=== PATIENT | female | born 1945 | race Caucasian/White ===

== ENCOUNTER 2016-08-25 07:36 | Day surgery (SDC) | payer MEDICARE ==
[~2016-08-25 07:36] MED LIST: Buffered Lidocaine 1% SYRIN* 3 ML/SYR SYRINGE INTRADERM ONE
[2016-08-25] MEDS ORDERED: Midazolam* 1 MG/ML 2 ML VIAL (2 MG) ONE ×2 (10:12→10:15)
[2016-08-25 10:55] VITALS: BP 128/82
[2016-08-25] MEDS ORDERED: Lidocaine 2% EPI 1:200000 MPF* 20 ML VIAL ONE (12:50)
[2016-08-25] MEDS ORDERED: Proparacaine 0.5% OPHTH.SOL* 15 ML BTL ONE (12:50)
[2016-08-25] MEDS ORDERED: Povidone Iodine 5% OPTH* 30 ML BTL ONE (12:50)
[2016-08-25] MEDS ORDERED: acetaZOLAMIDE TAB* 250 MG ONE (12:50)
[2016-08-25] MEDS ORDERED: Neomycin/Polymy/Dex OPTH.SUSP* MAXITROL 0.1% 5 ML ONE (12:50)
[2016-08-25] MEDS ORDERED: Lidocaine 1% MPF* 2 ML VIAL ONE (12:50)
[2016-08-25] MEDS ORDERED: Cyclopentolate 1% OPTH.SOL* 2 ML BTL ONE (12:50)
[2016-08-25] MEDS ORDERED: Flurbiprofen 0.03% OPTH.SOL* 2.5 ML BTL ONE (12:50)
[2016-08-25] MEDS ORDERED: Phenylephrine 2.5% OPTH.SOL* 2 ML BTL ONE (12:50)
--- NOTE | 2016-08-25 13:57 | OP ---
DATE OF OPERATION: 08/25/16 [facility] DATE OF : 47 SURGEON: Fernie Lauren M.D. PREOPERATIVE DIAGNOSIS: Cataract, left eye. POSTOPERATIVE DIAGNOSIS: Cataract, left eye. OPERATIVE PROCEDURE: Phacoemulsification left eye with IOL. DESCRIPTION OF PROCEDURE: The patient was brought to the operating room after being given 1/2% Alcaine with epinephrine drops in the preoperative area. The eye was prepped and draped in the usual sterile fashion. Sterile drape and eyelid speculum were placed. Again, topical 1/2% Alcaine with epinephrine was given. A paracentesis incision was made at the 3 o'clock position with the No.75 blade. Clear cornea incision 2.2 x 2.2-mm was created at the 6 o'clock position starting at the anterior limbus using the 2.2-mm keratome. The anterior chamber was irrigated with 0.4 mL of 1% non-preservative intracameral lidocaine and filled with DisCoVisc. A capsulorrhexis was completed using the cystotome and the Utrata forceps. Hydrodissection was performed with balanced salt solution. The lens nucleus was removed with the Phacoemulsification handpiece without incident. Cortex was removed with the irrigation-aspiration handpiece. The capsular bag was re-inflated using DisCoVisc and an [id number] 20.5- diopter implant was inserted with the shooter. The irrigation-aspiration handpiece was used to remove all residual DisCoVisc. The eye was refilled with balanced salt solution and the wound checked and found to be watertight. Topical Maxitrol drops were given. [id number]/[facility] #: [id number] [facility]
== END 2016-08-25 10:43 | disposition home or self-care (01) ==
LOC: OREAST 07:36
PROVIDERS: ATTEND Specialist
DX: H25.12 Age-related nuclear cataract, left eye (principal); H43.813 Vitreous degeneration, bilateral; H43.21 Crystalline deposits in vitreous body, right eye; I10 Essential (primary) hypertension
CPT/HCPCS: A9270-GY; J2250; V2632

== ENCOUNTER 2016-10-16 13:12 | Observation (INO) | payer MEDICARE ==
[2016-10-16] MEDS ORDERED: Aspirin Low Dose CHEW TAB* 81 MG PO ONE (13:29)
[2016-10-16] MEDS ORDERED: Nitroglycerin TAB 0.4 MG* 0.4 MG TAB SL ONE (13:47)
[2016-10-16 13:56] LABS: Hematocrit 34 % (35-47); Hemoglobin 10.8 g/dl (12.0-16.0); Mean Corpuscular HGB Conc 32 g/dl (31-36); Mean Corpuscular Hemoglobin 28 pg (27-31); Mean Corpuscular Volume 87 fL (80-97); Mean Platelet Volume 7 um3 (7.4-10.4); Red Blood Count 3.86 10^6/ul (4.0-5.4); Red Cell Distribution Width 14 % (10.5-15); White Blood Count 9.5 10^3/ul (3.5-10.8)
--- NOTE | 2016-10-16 13:59 | RAD ---
INDICATION: Chest pain. COMPARISON: Comparison is made with a prior chest x-ray study from October 16, 2015. TECHNIQUE: A portable view of the chest was obtained. FINDINGS: Cardiac and mediastinal contours appear to be within normal limits. The lungs are underinflated and clear. No pleural effusion is seen. IMPRESSION: NO EVIDENCE FOR ACUTE DISEASE.
[2016-10-16 14:07] LABS: Albumin 3.9 g/dL (3.2-5.2); BUN/Creatinine Ratio 21.3 (8-20); Calcium 8.9 mg/dL (8.6-10.3); EGFR African American 75.7 (>60); EGFR Non-African American 58.9 (>60); Potassium 4.5 mmol/L (3.5-5.0); Total Protein 6.5 g/dL (6.4-8.9)
[2016-10-16 14:08] LABS: Globulin 2.6 g/dL (2-4); Total Bilirubin 0.3 mg/dL (0.2-1.0)
--- NOTE | 2016-10-16 14:24 | RAD ---
INDICATION: Chest pain evaluate for aneurysm. COMPARISON: Comparison is made with prior CTs of the chest from March 07, 2015 and March 24, 2016. TECHNIQUE: A CT scan of the chest was performed without intravenous contrast. Contiguous axial sections were obtained from the lung apices through the lung bases. Images were reconstructed in the coronal and sagittal planes. FINDINGS: There is a linear density in the right middle lobe which is unchanged from the prior exam most consistent with atelectasis or scarring. There is a soft tissue density nodule present on image #27 of 56 in the right middle lobe measuring 6 mm in size which is unchanged from the prior studies. There is a soft tissue density nodule present in the superior segment of the left lower lobe on image #24 of 56 which is unchanged. There is a 3 mm nodule present in the left upper lobe on image # 28 of 56 which is unchanged. There is also a calcified granuloma in the right middle lobe and calcified lymph nodes in the subcarinal region and right hilum as well as calcifications within the spleen most consistent with old granulomatous disease. No pleural effusion is present. No significant enlarged mediastinal or hilar lymph nodes are seen. The heart is within normal limits in size. No pericardial effusion is present. There are coronary artery calcifications present. The thoracic aorta is normal in caliber. There is moderate calcific plaque present. There is a small hiatal hernia present which is unchanged. The patient appears to be status post gastric bypass surgery and cholecystectomy. No significant focal osseous abnormality is seen. IMPRESSION: 1. THE THORACIC AORTA IS NORMAL IN CALIBER. 2. FINDINGS CONSISTENT WITH OLD GRANULOMATOUS DISEASE. IN ADDITION THERE ARE SEVERAL NONCALCIFIED NODULES WHICH ARE UNCHANGED. RECOMMEND CONTINUED FOLLOW-UP WITH A REPEAT NONCONTRAST CT OF THE CHEST IN 6 MONTHS TIME. 3. SMALL HIATAL HERNIA.
[2016-10-16] MEDS ORDERED: Nitroglycerin 0.2 MG/HR PATCH* (5 MG) TRANSDERM ONE (14:48)
--- NOTE | 2016-10-16 15:18 | RAD ---
INDICATION: Chest and back pain evaluate for aortic aneurysm history of contrast allergy. COMPARISON: Comparison is made with a prior CT of the abdomen and pelvis from October 16, 2015. TECHNIQUE: A CT scan of the abdomen was performed without intravenous or oral contrast. Contiguous axial sections were obtained from the lung bases through the tops of the iliac crests. Images were reconstructed in the coronal and sagittal planes. FINDINGS: The lung bases are clear. No pleural effusion is present. These liver and spleen appear within normal limits in size. No significant focal hepatic abnormality is seen on this noncontrast study. There are calcifications within the spleen most consistent with old granulomatous disease as previously noted. The patient is status post cholecystectomy. The pancreas appears to be within normal limits. The kidneys and adrenal glands are normal in size. No hydronephrosis is seen. The aorta is normal in caliber. There is moderate calcific plaque present. No significant enlarged retroperitoneal lymph nodes are seen. The patient is status post gastric bypass surgery. There is a small hiatal hernia present which is unchanged. The visualized portion of the small and large bowel appear nondistended. There is a mesh graft in the anterior abdominal wall which is partially visualized on this study. No free intraperitoneal air or fluid is seen. No significant focal osseous abnormality is seen. IMPRESSION: 1. NO EVIDENCE FOR ACUTE FINDING. 2. MODERATE ATHEROSCLEROTIC CHANGE, NO AORTIC ANEURYSM. 3. STATUS POST CHOLECYSTECTOMY AND GASTRIC BYPASS SURGERY.
--- NOTE | 2016-10-16 19:10 | HP ---
CC: Roxana Hernandez MD * HISTORY AND PHYSICAL: DATE OF ADMISSION: 10/16/16 PRIMARY CARE PROVIDER: Roxana Hernandez MD. ATTENDING PHYSICIAN: Sung Hoover MD *(dictated by Iva Guzman NP). CHIEF COMPLAINT: Back pain between shoulder blades that radiates to chest. HISTORY OF PRESENT ILLNESS: Ms. Sy is a 71-year-old female with a past medical history significant for angina, hyperlipidemia, hypertension and GERD who presents to the emergency room with complaints of pain between her shoulder blades that radiates around to her chest. The patient reports that this discomfort started last night. She took some Motrin and used a heating pad and went to sleep and felt that the discomfort had went away on its own. The patient again developed discomfort after eating lunch that again started between her shoulder blades and radiated around to her chest. She reports that her back felt like tightness in her chest, felt like pressure. She did not notice any aggravating factors. She felt that rest helped with the discomfort some. She also noted that the pain was better when she lied on her side and worst when she was lying on her back. The patient feels that this discomfort is different than her typical anginal pain. The patient denies any fever, chills, nausea, vomiting, diarrhea, diaphoresis, or urinary symptoms. The patient states that she noticed shortness of breath with exertion. This has occurred for some time now and is not new. She also reports having a cough that is productive with a white phlegm. Due to the concern, the patient presented to the emergency room for further evaluation of her symptoms. While in the emergency room, the patient received aspirin and nitro SL x2. She is currently pain free. She had an EKG showing sinus rhythm with a right bundle branch block. This EKG is similar to previous EKG from 10/16/15 with the exception that in the previous EKG, she had ST depression in leads V3 to 6 and aVF. The patient had troponins x2 that were 0.00. The patient also had a D -dimer that was less than 200. The patient had a chest x-ray showing no active disease in addition to chest and abdomen CT showing no acute findings and no aneurysms noted. Hospitalists were asked to evaluate the patient for admission. PAST MEDICAL HISTORY: 1. Hypertension. 2. Hyperlipidemia. 3. GERD. 4. Angina. 5. Arthritis. PAST SURGICAL HISTORY: 1. Status post cholecystectomy. 2. Status post total hysterectomy and bilateral salpingo-oophorectomy. 3. Status post a cyst excision from her shoulder. 4. Status post gastric bypass surgery in 2002. 5. Status post 3 hernia repairs. 6. Status post hammer toe repair. HOME MEDICATIONS: Include: 1. Lisinopril 40 mg oral daily. 2. Diltiazem 120 mg oral daily. 3. Atorvastatin 20 mg oral daily. 4. Aspirin 81 mg oral daily. 5. Super complex vitamin B 1 oral daily. 6. Propranolol 60 mg oral daily. 7. Omeprazole 20 mg oral daily. 8. Magnesium 250 mg oral daily. ALLERGIES: IODINE CONTRAST. FAMILY HISTORY: The patient's father passed from an AR at age 52. The patient' s maternal grandmother had a history of pacemaker. The patient's maternal uncle had a history of diabetes mellitus. The patient's mother had a history of uterine cancer. SOCIAL HISTORY: The patient is a former smoker quitting approximately 30 years ago. Prior to that, she had a pack a day smoking history for 20 years. The patient occasionally drinks wine. She denies recreational drug use. She is currently not working as she is taking care of her . Her sons, "Becky" Jose and Flaquito Sy, would be her surrogate decision makers in the event that she is unable to make decisions for herself. REVIEW OF SYSTEMS: I performed a 14-point review of systems. All the pertinent positives and negatives are mentioned in the history of present illness. The remaining review of systems are negative. PHYSICAL EXAMINATION GENERAL APPEARANCE: The patient is alert, pleasant, appears to be in no acute distress. VITAL SIGNS: Temperature 97.0, heart rate 50, respiratory rate 18, O2 sat 98% on room air, blood pressure 164/57. HEENT: Normocephalic, atraumatic. Pupils are equal and reactive to light. Extraocular movements are intact. RESPIRATORY: There is no accessory muscle use and the lungs are clear to auscultation bilaterally. CARDIOVASCULAR: Regular rate and rhythm. S1, S2 present. There are no murmurs , rubs, or gallops heard. ABDOMEN: Soft, nontender, nondistended. There are bowel sounds present x4. EXTREMITIES: There is no lower extremity edema. DP and PT pulses are 2+ and symmetric. MUSCULOSKELETAL: There is no clubbing or cyanosis noted. The patient exhibits good strength in all extremities. NEUROLOGICAL: The patient is alert and oriented x4. Cranial nerves II through XII are grossly intact. PSYCHOLOGICAL: The patient is calm and cooperative. SKIN: There are no rashes or abnormalities seen. DIAGNOSTIC STUDIES/LABORATORY DATA: Sodium 139, potassium 4.5, chloride 109, CO2 24, BUN 20, creatinine 0.94, glucose 76. White blood cell count 9.5, hemoglobin 10.8, hematocrit 34, and platelet count 192,000. Troponin 0.00 x2. D-dimer less than 200. EKG showed a sinus rhythm and a right bundle branch block. Rate 61. There are no signs of acute ischemia. When compared to previous EKG from 10/16/15, the previous EKG had ST depression in leads V3 to 6 and aVF which has now resolved. 1. Chest x-ray from today. Radiologist's impression: No active disease. 2. Chest CT from today. Radiologist's impression: The thoracic aorta is normal in caliber. Findings consistent with old granulation tissue. In addition, there are several noncalcified nodules which are unchanged. Recommend continued followup with a repeat noncontrast CT of the chest in 6 months' time. Small hiatal hernia. 3. Abdomen CT from today. Radiologist's impression: No evidence for acute findings. Moderate atherosclerotic change. No aortic aneurysm. Status post cholecystectomy and gastric bypass surgery. IMPRESSION: Ms. Sy is a 71-year-old female with past medical history significant for angina, hyperlipidemia, gastroesophageal reflux disease, and hypertension who presents to the emergency room with complaints of chest discomfort and back discomfort for a day. She will be admitted as an observation for chest pain, rule out acute coronary syndrome. ASSESSMENT/PLAN: 1. Chest pain: The patient's D-dimer is less than 200. She is not hypoxic and not tachycardic. I have low suspicion that the patient's discomfort is caused by a pulmonary embolus. We will repeat her troponins one more time. We will monitor her on telemetry. The patient may benefit from an outpatient stress test if she does in fact rule out for acute coronary syndrome. The patient also reports that she has been under stress due to her 's health. I suspect this could be correlating to some of her symptoms. The patient denies any recent activities that could have strained her back or chest muscles. Her pain is not reproducible with palpation. We will check the patient's fasting lipids in the morning. She is already on a statin and baby aspirin in addition to propranolol. 2. Hypertension: The patient had some mild hypertension while in the emergency room. She will be continued on her lisinopril, diltiazem, and propranolol. 3. Hyperlipidemia: The patient will be continued on her home atorvastatin. We will check fasting lipids in the morning and adjust her statin as needed. 4. Gastroesophageal reflux disease: We will continue the patient on her home Prilosec. 5. Fluids, electrolytes, and nutrition: The patient will be continued on a heart healthy diet. 6. Code status: Full code. 7. DVT prophylaxis: She is at high risk and will be placed on subcu heparin. 8. Disposition: Observation for rule out acute coronary syndrome. TIME SPENT: The time for this admission was 60 minutes, greater than half of that was spent [id number] with the patient discussing medications, past medical history and the events leading up to her arrival today and performing a physical examination. The case has been reviewed with the attending, Dr. Hoover , who agrees with the plan of care. Reviewed by KATTY PALACIOS 10/16/16 [id number]/[facility] #: [id number] BRADY
[2016-10-16] MEDS: Acetaminophen TAB* 325 MG PO PRN (19:49)
[2016-10-16] MEDS ORDERED: Omeprazole CAP* 20 MG PO SCH (21:00)
[2016-10-16] MEDS: Heparin VIAL(*) 5000 UNITS/ML VIAL (FIVE THOUSAND) SUBCUT SCH (22:02)
[2016-10-17] MEDS: Acetaminophen TAB* 325 MG PO PRN ×3 (02:25→17:47)
[2016-10-17] MEDS: Heparin VIAL(*) 5000 UNITS/ML VIAL (FIVE THOUSAND) SUBCUT SCH ×3 (05:50→21:40)
[2016-10-17 05:52] LABS: HDL Cholesterol 44.7 mg/dL
[2016-10-17] MEDS: Aspirin EC Low Dose* 81 MG TAB.EC PO SCH (07:48)
[2016-10-17] MEDS: Lisinopril TAB* 10 MG PO SCH (07:48)
[2016-10-17] MEDS: Omeprazole CAP* 20 MG PO SCH (07:48)
[2016-10-17] MEDS: Diltiazem CD CAP* 120 MG PO SCH (07:48)
[2016-10-17] MEDS: Atorvastatin* 20 MG TAB PO SCH (07:48)
[2016-10-17] MEDS ORDERED: Propranolol LA CAP* 60 MG PO SCH ×2 (09:00→09:59)
--- NOTE | 2016-10-17 09:45 | PN ---
Subjective Date of Service: 10/17/16 Interval History: patient reports she is tired and reports intermittent left chest wall "twinges of pain and upper back discomfort". She denies ever having these symptoms in the past, no known trauma or heavy lifting. Denies SOB, diaphoresis, nausea. No orthopnea or LE edema, no cough. Denies reflux. Objective Active Medications: Acetaminophen (Tylenol Tab*) 650 mg PO Q4H PRN PRN Reason: FEVER/PAIN Last Admin: 10/17/16 02:25 Dose: 650 mg Aspirin (Aspirin Ec Low Dose*) 81 mg PO DAILY [facility] Last Admin: 10/17/16 07:48 Dose: 81 mg Atorvastatin Calcium (Lipitor*) 20 mg PO DAILY [facility] Last Admin: 10/17/16 07:48 Dose: 20 mg Diltiazem HCl (Cardizem Cd Cap*) 120 mg PO DAILY [facility] Last Admin: 10/17/16 07:48 Dose: 120 mg Heparin Sodium (Porcine) (Heparin Vial(*)) 5,000 units SUBCUT Q8HR [facility] Last Admin: 10/17/16 05:50 Dose: 5,000 units Lisinopril (Prinivil Tab*) 40 mg PO DAILY [facility] Last Admin: 10/17/16 07:48 Dose: 40 mg Omeprazole (Prilosec Cap*) 20 mg PO DAILY [facility] Last Admin: 10/17/16 07:48 Dose: 20 mg Propranolol HCl (Inderal La Cap*) 60 mg PO DAILY [facility] Last Admin: 10/17/16 07:48 Dose: 60 mg Vital Signs 10/16/16 10/16/16 10/16/16 16:00 17:11 19:28 Temperature 97.7 F 97.7 F Pulse Rate 51 53 51 Respiratory 18 20 20 Rate Blood Pressure 164/57 153/61 118/44 (mmHg) O2 Sat by Pulse 98 100 98 Oximetry 10/16/16 10/17/16 10/17/16 23:05 03:49 07:37 Temperature 97.6 F 98.4 F 97.1 F Pulse Rate 67 69 59 Respiratory 16 16 16 Rate Blood Pressure 147/67 142/62 134/55 (mmHg) O2 Sat by Pulse 99 97 98 Oximetry 10/17/16 07:59 Temperature 97.1 F Pulse Rate 59 Respiratory 16 Rate Blood Pressure 134/55 (mmHg) O2 Sat by Pulse 98 Oximetry Oxygen Devices in Use Now: None Appearance: 71 yo female sitting up on the side of the bed A+O x3 in NAD Eyes: No Scleral Icterus, PERRLA Ears/Nose/Mouth/Throat: NL Teeth, Lips, Gums, Mucous Membranes Moist Neck: NL Appearance and Movements; NL JVP Respiratory: Symmetrical Chest Expansion and Respiratory Effort, Clear to Auscultation Cardiovascular: NL Sounds; No Murmurs; No JVD, RRR, No Edema Abdominal: NL Sounds; No Tenderness; No Distention Extremities: No Edema, No Clubbing, Cyanosis Skin: No Rash or Ulcers, No Nodules or Sclerosis Neurological: Alert and Oriented x 3, NL Sensation, NL Gait, NL Muscle Strength and Tone Lines/Tubes/Other Access: Clean, Dry and Intact Peripheral IV Nutrition: Taking PO's Result Diagrams: 10/16/16 13:42 10/16/16 13:42 Assess/Plan/Problems-Billing Assessment: 71 yo female with a PMH of angina, GERD, HTN, HLD, HLD, Obesity who presented with yesterday with CP. - Patient Problems (1) Chest pain Comment: - continues to have intermittent chest and upper back discomfort. Troponins negative x3. No EKG changes on admission EKG, plan to repeat EKG and Trop now - Plan for nuclear exercise stress test in am, holding BB in am - Nitro PRN - TTE (2) Anemia Comment: - normocytic anemia - send iron studies and stool for occult blood (3) History of hypertension Comment: - controlled. continue BB, cardizem, lisinopril. HR noted 50-60's currently on BB - continue to monitor on Tele. (4) History of gastroesophageal reflux (GERD) Comment: - continue PPI (5) Hx of hyperlipidemia Comment: - WNL's. - continue statin (6) DVT prophylaxis Comment: HSQ (7) Full code status Status and Disposition: switch to inpatient for stress test in am.
[2016-10-17] MEDS ORDERED: Nitroglycerin TAB 0.4 MG* 0.4 MG TAB SL PRN (09:56)
[2016-10-17 10:45] LABS: Hematocrit 36 % (35-47); Hemoglobin 11.3 g/dl (12.0-16.0); Mean Corpuscular HGB Conc 32 g/dl (31-36); Mean Corpuscular Hemoglobin 29 pg (27-31); Mean Corpuscular Volume 90 fL (80-97); Mean Platelet Volume 7 um3 (7.4-10.4); Red Blood Count 3.95 10^6/ul (4.0-5.4); Red Cell Distribution Width 14 % (10.5-15); White Blood Count 6.7 10^3/ul (3.5-10.8)
[2016-10-17 10:51] LABS: Anion Gap 4 mmol/L (2-11); BUN/Creatinine Ratio 26.8 (8-20); Blood Urea Nitrogen 19 mg/dL (6-24); CO2 Carbon Dioxide 25 mmol/L (22-32); Calcium 9.2 mg/dL (8.6-10.3); Chloride 106 mmol/L (101-111); EGFR African American 104.7 (>60); EGFR Non-African American 81.4 (>60); Glucose 95 mg/dL (70-100); Potassium 4.6 mmol/L (3.5-5.0); Sodium 135 mmol/L (133-145)
[2016-10-17 11:56] LABS: Iron 66 ug/dL (50-212); Total Iron Binding Capacity 410 mcg/dL (250-450); Transferrin 293 mg/dL (203-362)
[2016-10-17 12:15] LABS: Ferritin 10.7 ng/mL (11-307)
[2016-10-17 12:19] LABS: Folate > 20.00 ng/mL (>3.99)
[2016-10-17 12:20] LABS: Vitamin B12 308 pg/mL (180-914)
[2016-10-18] MEDS: Heparin VIAL(*) 5000 UNITS/ML VIAL (FIVE THOUSAND) SUBCUT SCH ×2 (05:58→15:57)
--- NOTE | 2016-10-18 08:49 | PN ---
Subjective Date of Service: 10/18/16 Interval History: Patient seen and examined at bedside. Ms. Sy is OOB to chair. She reports sleeping pretty well, though she continues to endorses intermittent left chest wall and upper back discomfort/pain. No previously known history of this, but she states that she has felt more lethargic recently and that simple activities , such as walking through the grocery store now cause her fatigue. Currently denies SOB, nausea, orthopnea, LE pain/edema. She does report a hx of "poor circulation to the legs" and follows with a vascular surgeon. Telemetry: Sinus bradycardia 58 Family History: Unchanged from Admission Social History: Unchanged from Admission Past Medical History: Unchanged from Admission Objective Active Medications: Acetaminophen (Tylenol Tab*) 650 mg PO Q4H PRN PRN Reason: FEVER/PAIN Last Admin: 10/17/16 17:47 Dose: 650 mg Aspirin (Aspirin Ec Low Dose*) 81 mg PO DAILY [facility] Last Admin: 10/17/16 07:48 Dose: 81 mg Atorvastatin Calcium (Lipitor*) 20 mg PO DAILY [facility] Last Admin: 10/17/16 07:48 Dose: 20 mg Diltiazem HCl (Cardizem Cd Cap*) 120 mg PO DAILY [facility] Last Admin: 10/17/16 07:48 Dose: 120 mg Heparin Sodium (Porcine) (Heparin Vial(*)) 5,000 units SUBCUT Q8HR [facility] Last Admin: 10/18/16 05:58 Dose: 5,000 units Lisinopril (Prinivil Tab*) 40 mg PO DAILY [facility] Last Admin: 10/17/16 07:48 Dose: 40 mg Nitroglycerin (Nitroglycerin Tab 0.4 Mg*) 0.4 mg SL .Q5MIN PRN PRN Reason: ANGINA Omeprazole (Prilosec Cap*) 20 mg PO DAILY [facility] Last Admin: 10/17/16 07:48 Dose: 20 mg Propranolol HCl (Inderal La Cap*) 60 mg PO DAILY [facility] Vital Signs 10/17/16 10/17/16 10/17/16 11:17 12:32 15:06 Temperature 97.3 F 97.3 F 97.5 F Pulse Rate 60 60 60 Respiratory 16 16 20 Rate Blood Pressure 138/56 138/56 143/60 (mmHg) O2 Sat by Pulse 97 97 99 Oximetry 10/17/16 10/17/1617 19:07 20:00 23:28 Temperature 97.6 F 98.4 F Pulse Rate 62 71 Respiratory 20 16 16 Rate Blood Pressure 123/53 150/58 (mmHg) O2 Sat by Pulse 98 98 Oximetry 10/18/16 04:10 Temperature 98.3 F Pulse Rate 63 Respiratory 16 Rate Blood Pressure 155/55 (mmHg) O2 Sat by Pulse 98 Oximetry Oxygen Devices in Use Now: None Appearance: Older female, OOB to chair, NAD Eyes: No Scleral Icterus, PERRLA Ears/Nose/Mouth/Throat: Clear Oropharnyx, Mucous Membranes Moist Neck: NL Appearance and Movements; NL JVP Respiratory: Symmetrical Chest Expansion and Respiratory Effort, Clear to Auscultation Cardiovascular: NL Sounds; No Murmurs; No JVD, RRR Abdominal: NL Sounds; No Tenderness; No Distention Lymphatic: No Auricular Adenopathy Extremities: No Edema Skin: No Rash or Ulcers, No Nodules or Sclerosis Neurological: Alert and Oriented x 3, NL Muscle Strength and Tone Lines/Tubes/Other Access: Clean, Dry and Intact Peripheral IV Result Diagrams: 10/17/16 10:29 10/17/16 10:29 Assess/Plan/Problems-Billing Assessment: 71 yo female with a PMH of angina, GERD, HTN, HLD, HLD, Obesity who presented 10/16 with CP. - Patient Problems (1) Chest pain Code(s): R07.9 - CHEST PAIN, UNSPECIFIED Comment: Continues to have intermittent chest and upper back discomfort. Troponins negative x3 No new ischemic changes noted on EKG, patient has RBBB Nuclear stress test and TTE today (2) Anemia Code(s): D64.9 - ANEMIA, UNSPECIFIED Comment: Normocytic anemia, HH improved today Asymptomatic Ferritin only mildly low Stool occult pending Outpatient follow-up with PCP for further workup (3) History of hypertension Code(s): Z86.79 - PERSONAL HISTORY OF OTHER DISEASES OF THE CIRCULATORY SYSTEM Comment: Mildly elevated overnight Continue BB (held this AM for stress test), diltiazem, lisinopril. HR noted 50-60's currently on BB - continue to monitor on telemetry. (4) Hx of hyperlipidemia Code(s): Z86.39 - PERSONAL HISTORY OF ENDO, NUTRITIONAL AND METABOLIC DISEASE Comment: Lipid profile WNL Continue statin. (5) History of gastroesophageal reflux (GERD) Code(s): Z87.19 - PERSONAL HISTORY OF OTHER DISEASES OF THE DIGESTIVE SYSTEM Comment: Continue omeprazole. (6) DVT prophylaxis Comment: SQ heparin Status and Disposition: OBV admit. Plan for stress test and echo today.
[2016-10-18] MEDS: Acetaminophen TAB* 325 MG PO PRN (09:38)
[2016-10-18] MEDS: Aspirin EC Low Dose* 81 MG TAB.EC PO SCH (09:39)
[2016-10-18] MEDS: Atorvastatin* 20 MG TAB PO SCH (09:39)
[2016-10-18] MEDS: Omeprazole CAP* 20 MG PO SCH (09:39)
[2016-10-18] MEDS: Lisinopril TAB* 10 MG PO SCH (09:39)
--- NOTE | 2016-10-18 12:47 | RAD ---
HISTORY: Chest pain, shortness of breath, hypertension, hyperlipidemia, obesity, abnormal EKG COMPARISONS: None TECHNIQUE: A 1 day stress/rest myocardial perfusion study was performed, with exercise stress. The exercise portion was performed using the Mario protocol, for a total METs of 4.6. The stress portion was monitored by Dr. Diop. Gated SPECT imaging was performed, with CT-based attenuation correction DOSE: Stress: Technetium 99m tetrofosmin, 25.48 millicuries, injected at 11:54 AM on October 18, 2016 Rest: Technetium 99m tetrofosmin, 10.83 millicuries, injected at 6:30 AM on October 18, 2016 Pharmacologic agent: None FINDINGS: CARDIAC MONITORING: Peak heart rate of 144 bpm, 96% of predicted EF: 78 % TID: 1.15 MOTION: Normal motion, with normal wall thickening. PERFUSION: There are no fixed or reversible perfusion defects. OTHER: None IMPRESSION: NO FIXED OR REVERSIBLE PERFUSION DEFECTS. ASSESSMENT: LOW RISK. Based on imaging criteria from ACC/AHA 2002. Guideline Update for the Management of Patient's with Chronic Stable Angina, table 23. Noninvasive Risk Stratification.
[2016-10-18] MEDS: Diltiazem CD CAP* 120 MG PO SCH (13:02)
--- NOTE | 2016-10-18 15:19 | ED ---
Tu Heaton SooYoung, scribed for Oseas Arreaga MD on 10/16/16 at 1331 . HPI Chest Pain - HPI Summary HPI Summary: A 71 y/o F presents to ED with c/o intermittent CP onset last night. Pain described as pressure and radiating to back. Associated sx: SOB, NAYLOR, dizziness since resolved, productive cough. Denies pedal edema, abd pain. Pt took 1 aspirin approx two hours [employer]. No recent travel, bed rest or surgeries. Carrying grocieres mildly aggravted the sx. She states the pain worsened through the night particularly along her back and shoulders. She states feeling somewhat improved in ED, and rates her pain as 3 out of 10. She had lunch this afternoon at [employer]. Pert PMHx: HTN, HDL, vascular dz. No allergies to shell fish. Past stress test and angiogram was "a long time ago," she thinks they were nml. She saw Dr. Aguilar, director of career services, only a few times a long time ago. - History of Current Complaint Chief Complaint: EDChestPainROMI Hx Obtained From: Patient Onset/Duration: Started Hours Ago - last night, Atraumatic, Still Present Timing: Intermittent Initial Severity: Moderate Current Severity: Moderate Pain Intensity: 3 - at bedside Pain Scale Used: 0-10 Numeric Chest Pain Radiates: Yes Chest Pain Radiates To:: Back Character: Pressure/Squeezing Aggravating Factor(s): Exertion - "carrying groceries" Associated Signs and Symptoms: Positive: Headaches, Dizziness - resolved, Shortness of Breath, Productive Cough. Negative: Abdominal Pain, Edema - Additional Pertinent History Primary Care Physician: [id number] - Allergy/Home Medications Allergies/Adverse Reactions: Allergies Allergy/AdvReac Type Severity Reaction Status Date / Time Iodinated Diagnostic Agents Allergy Severe Swelling Verified 08/25/16 08:15 Of Face,Lips,& Throat PMH/Surg Hx/FS Hx/Imm Hx Previously Healthy: No Endocrine/Hematology History: Denies: Hx Diabetes Cardiovascular History: Reports: Hx Angina, Hx Hypertension, Hx Peripheral Vascular Disease, Hx Rheumatic Fever - 13 years old, Other Cardiovascular Problems/Disorders - LBBB Denies: Hx Pacemaker/ICD GI History: Reports: Hx Gall Bladder Disease - removed, Hx Gastroesophageal Reflux Disease, Hx Hiatal Hernia, Other GI Disorders - hx of SBO History: Reports: Other Problems/Disorders - hematuria Denies: Hx Renal Disease Musculoskeletal History: Reports: Hx Arthritis - HIPS, LOW BACK, Hx Back Problems Denies: Hx Osteoporosis Sensory History: Reports: Hx Cataracts - Left, Hx Contacts or Glasses - reading Denies: Hx Hearing Aid Opthamlomology History: Reports: Hx Cataracts - Left, Hx Contacts or Glasses - reading Neurological History: Reports: Hx Headaches - DAILY, Hx Migraine, Other Neuro Impairments/Disorders - CHRONIC HEADACHES Psychiatric History: Denies: Hx Panic Disorder - Cancer History Hx Chemotherapy: No Hx Radiation Therapy: No - Surgical History Surgery Procedure, Year, and Place: TOTAL HYSTERECTOMY, GALLBLADDER, GASTRIC BYPASS, TUMOR REMOVED FROM RIGHT SHOULDER, 3 HERNIA'S, REMOVAL OF ABCESS AFTER LAST HERNIA REPAIR WITH MESH PLACEMENT; 2 HAMMER TOE SURGERIES, CATARACT RIGHT EYE DR. CACERES, TWISTED INTESTIONS - REPAIRED; Hx Anesthesia Reactions: No Infectious Disease History: No Infectious Disease History: Denies: Traveled Outside the [place] in Last 30 Days - Family History Known Family History: Positive: Cardiac Disease - Father - [place] at 52, at 52 , Other - nerg: FAMILY BREAST [place] - Social History Occupation: Employed Full-time Lives: With Family Alcohol Use: Occasionally Alcohol Amount: 1 GLASS/WEEK Hx Substance Use: No Substance Use Type: Reports: None Hx Tobacco Use: Yes Smoking Status (MU): Former Smoker Type: Cigarettes Amount Used/How Often: 1.5 ppd 40 years Have You Smoked in the Last Year: No Review of Systems Negative: Fever, Chills Negative: Erythema Negative: Sore Throat Positive: Chest Pain Positive: Shortness Of Breath, Cough - productive Negative: Abdominal Pain, Vomiting, Nausea Negative: dysuria, hematuria Negative: Myalgia, Edema Negative: Rash Neurological: Other - pos: dizziness, resolved Positive: Headache All Other Systems Reviewed And Are Negative: Yes Physical Exam - Summary Physical Exam Summary: Constitutional: Well-developed, Well-nourished, Alert. (-) Distressed Skin: Warm, Dry HENT: Normocephalic; Atraumatic Eyes: Conjunctiva normal Neck: Musculoskeletal ROM normal neck. (-) JVD, (-) Stridor, (-) Tracheal deviation Cardio: Rhythm regular, rate normal, Heart sounds normal; Intact distal pulses; The pedal pulses are 2+ and symmetric. Radial pulses are 2+ and symmetric. (-) Murmur Pulmonary/Chest wall: Effort normal. (-) Respiratory distress, (-) Wheezes, (-) Rales Abd: Soft, (-) Tenderness, (-) Distension, (-) Guarding, (-) Rebound Musculoskeletal: (-) Edema Lymph: (-) Cervical adenopathy Neuro: Alert, Oriented x3 Psych: Mood and affect Normal Triage Information Reviewed: Yes Vital Signs On Initial Exam: Initial Vitals Temp Pulse Resp BP Pulse Ox 97.0 F 59 15 129/59 97 10/16/16 13:14 10/16/16 13:14 10/16/16 13:14 10/16/16 13:14 10/16/16 13:14 Vital Signs Reviewed: Yes Diagnostics - Vital Signs Vital Signs Temp Pulse Resp BP Pulse Ox 10/16/16 13:14 97.0 F 60 16 129/59 98 - Laboratory Result Diagrams: 10/16/16 13:42 10/16/16 13:42 Lab Statement: Any lab studies that have been ordered have been reviewed, and results considered in the medical decision making process. - Radiology CXR Xray Interpretation: No Acute Changes - IMPRESSION: No evidence for acute dz Radiology Interpretation Completed By: Radiologist - CT CHEST CT Interpretation: Positive (See Comments) - IMPRESSION: 1. THE THORACIC AORTA IS NORMAL IN CALIBER. 2. FINDINGS CONSISTENT WITH OLD GRANULOMATOUS DISEASE. IN ADDITION THERE ARE SEVERAL NONCALCIFIED NODULES WHICH ARE UNCHANGED. RECOMMEND CONTINUED FOLLOW-UP WITH A REPEAT NONCONTRAST CT OF THE CHEST IN 6 MONTHS TIME. 3. SMALL HIATAL HERNIA. CT Interpretation Completed By: Radiologist ABD CT Interpretation: Positive (See Comments) - IMPRESSION: 1. NO EVIDENCE FOR ACUTE FINDING. 2. MODERATE ATHEROSCLEROTIC CHANGE, NO AORTIC ANEURYSM. 3. STATUS POST CHOLECYSTECTOMY AND GASTRIC BYPASS SURGERY. CT Interpretation Completed By: Radiologist - EKG 1 Cardiac Rate: NL - 61 bpm EKG Rhythm: Sinus Rhythm ST Segment: Normal - no STEMI EKG Interpretation: RBBB. read at 1325. Re-Evaluation - Re-Evaluation 1 Re-Evaluation Time: 14:42 Change: Unchanged Comment: Discussing results with pt and . Pt states CP relief with nitro , stating pain at T10 level. 2 Re-Evaluation Time: 15:30 Change: Unchanged Comment: Discussing CT results with pt. Chest Pain Course/Dx - Course Course Of Treatment: Pt is a 71 y/o F presenting with c/o intermittent CP onset last night. Pain described as pressure and radiating to back. Associated sx: SOB , NAYLOR, dizziness since resolved, productive cough. Denies pedal edema, abd pain. Pt took 1 aspirin approx two hours [employer]. No recent travel, bed rest or surgeries. The pain worsened through the night, particularly along her back and shoulders. Pert PMHx: HTN, Hyperlipidemia, vascular dz. Past stress test and angiogram was "a long time ago," she believes they were nml. Pert FHx: father of [place] at 52 years old. Pt given aspirin, Nitro in ED. First trop is 0.00. CXR shows no acute dz. CT shows "1. THE THORACIC AORTA IS NORMAL IN CALIBER. 2. FINDINGS CONSISTENT WITH OLD GRANULOMATOUS DISEASE. IN ADDITION THERE ARE SEVERAL NONCALCIFIED NODULES WHICH ARE UNCHANGED. RECOMMEND CONTINUED FOLLOW-UP WITH A REPEAT. NONCONTRAST CT OF THE CHEST IN 6 MONTHS TIME. 3. SMALL HIATAL HERNIA." Abd CT shows "IMPRESSION: 1. NO EVIDENCE FOR ACUTE FINDING. 2. MODERATE ATHEROSCLEROTIC CHANGE, NO AORTIC ANEURYSM. 3. STATUS POST CHOLECYSTECTOMY AND GASTRIC BYPASS SURGERY.". Discussed with Dr. Gomez, hospitalist, will admit pt. - Diagnoses Provider Diagnoses: Chest pain, unspecified - Provider Notifications Discussed Care Of Patient With: Nellie Gomez - hospitalist Time Discussed With Above Provider: 15:36 Instructed by Provider To: Admit As Inpatient Discharge - Discharge Plan Condition: Stable Disposition: ADMITTED TO [facility] Referrals: Roxana Hernandez MD [Primary Care Provider] - The documentation as recorded by the Tu licea SooYoung accurately reflects the service I personally performed and the decisions made by me, Oseas Arreaga MD.
--- NOTE | 2016-10-18 15:56 | ECHO ---
Patient: EDER CHRISTY [facility] Rec#: [id number] : 1945 Date: 10/18/2016 Age: 71y Height: 157.48 cm / 62.0 in Weight: 99.34 kg / 218.9 lbs Sex: F BSA: 1.99 Room#: 431 Admit Date#: 10/16/2016 Type: Inpatient Referring: Crystal Hope Reading: Garret Hernández MD Branch Service Leader: Hoda Xiong RDCS CC: CAMILLE MAURICE Transthoracic Echocardiogram Indication: CP BP: 155/55 HR: 62 Rhythm: NSR Findings History: Angina,HLD,HTN,GERD,arthritis. Technical Comments: The study quality is good. Completed at 1435. The study is technically limited due to patient body habitus. Left Ventricle: The left ventricular chamber size is normal. Global left ventricular wall motion and contractility are within normal limits. There is normal left ventricular systolic function. The estimated ejection fraction is 55-60%. Abnormal left ventricular diastolic function is observed. Left Atrium: The left atrium is mild to moderately dilated. Right Ventricle: The right ventricular cavity size is normal. The right ventricular global systolic function is normal. Right Atrium: The right atrial cavity size is normal. Aortic Valve: The aortic valve is trileaflet. The aortic valve leaflets are mildly thickened. There is evidence of aortic sclerosis without stenosis. There is mild aortic regurgitation. There is borderline aortic stenosis present. Mitral Valve: There is mitral annular calcification. There is mild to moderate mitral regurgitation. There is no evidence of mitral stenosis. Tricuspid Valve: The tricuspid valve leaflets are normal. There is a physiologic tricuspid regurgitation. Pulmonic Valve: The pulmonic valve appears normal. There is a trace pulmonic regurgitation. There is no pulmonic stenosis. Pericardium: A pericardial fat pad is visualized. Aorta: There is no dilatation of the ascending aorta. There is no dilatation of the aortic arch. There is no dilation of the aortic root. Pulmonary Artery: The main pulmonary artery appears normal. Venous: The inferior vena cava appears normal in size. There is a greater than 50% respiratory change in the inferior vena cava dimension. Summary: There are no significant changes when compared to the previous study done on 04/13/16 Conclusions Global left ventricular wall motion and contractility are within normal limits. There is normal left ventricular systolic function. The estimated ejection fraction is 55-60%. The right ventricular global systolic function is normal. There is evidence of aortic sclerosis without stenosis. There is mild aortic regurgitation. There is mild to moderate mitral regurgitation. There is a physiologic tricuspid regurgitation. Measurements Name Value Normal Range RVIDd (AP) 2D 2.3 cm (0.9 - 2.6) RVDdMajor (2D) 2.7 cm (2.2 - 4.4) RAd ISD 4CH 3.4 cm (3.4 - 4.9) RA (A4C)W 2.8 cm (2.9 - 4.6) IVSd (2D) 1 cm (0.6 - 1) LVPWd (2D) 0.9 cm (0.6 - 1) LVIDd (2D) 4 cm (3.6 - 5.4) LVIDs (2D) 2.7 cm - LV FS (2D) 32 % (25 - 45) Aortic Annulus 2.1 cm (1.4 - 2.6) Ao root diameter (2D) 3 cm (2.1 - 3.5) Ascending Ao 2.7 cm (2.1 - 3.4) Aortic arch 2.1 cm (1.8 - 3.4) LA dimension (AP) 2D 4.4 cm (2.3 - 3.8) LAd ISD 4CH 5.2 cm (2.9 - 5.3) LA ISD 4CH W 3 cm (2.5 - 4.5) Name Value Normal Range LA ESV SP 4CH (A/L) 33 ml - LA ESV SP 2CH (A/L) 51 ml - LA ESV BP (A/L) 42 ml - LA ESV BP (A/L) index 21.3 ml/m2 - LA ESV SP 4CH (MOD) 31 ml - LA ESV SP 2CH (MOD) 48 ml - Name Value Normal Range MV E-wave Vmax 1.2 m/sec - MV deceleration time 293 msec - MV A-wave Vmax 1.3 m/sec - MV E:A ratio 0.91 ratio - LV septal e' Vmax 0.07 m/sec - LV lateral e' Vmax 0.08 m/sec - LV E:e' septal ratio 17.14 ratio - LV E:e' lateral ratio 15 ratio - Name Value Normal Range AV Vmax 2.4 m/sec - AV VTI 55.9 cm - AV peak gradient 23.56 mmHg - AV mean gradient 11.33 mmHg - LVOT diameter 1.9 cm - LVOT Vmax 1.5 m/sec - LVOT VTI 39.1 cm - LVOT peak gradient 8.75 mmHg - LVOT mean gradient 4.38 mmHg - HU (continuity Vmax) 1.8 cm2 - HU (continuity VTI) 2 cm2 - AR PHT 503 msec - AR peak gradient 72.62 mmHg - Name Value Normal Range TR Vmax 2.6 m/sec - TR peak gradient 27 mmHg - RAP 3 mmHg - RVSP 30 mmHg - IVC diameter 1.2 cm - Name Value Normal Range PV Vmax 0.6 m/sec - PV peak gradient 1.49 mmHg -
[2016-10-18 15:58] VITALS: BP 134/55
--- NOTE | 2016-10-19 17:14 | DS ---
CC: Roxana Hernandez MD * DISCHARGE SUMMARY: DATE OF ADMISSION: 10/16/16 DATE OF DISCHARGE: 10/18/16 PRIMARY CARE PHYSICIAN: Roxana Hernandez MD. PROVIDER: Anastasia Ann NP ATTENDING PHYSICIAN: Otf Corrigan MD * (as dictated by Anastasia Ann NP) . PRIMARY DISCHARGE DIAGNOSES: 1. Chest pain. 2. Anemia. SECONDARY DISCHARGE DIAGNOSES: 1. Hypertension. 2. Hyperlipidemia. 3. Gastroesophageal reflux disease. 4. Angina. 5. Arthritis. MEDICATIONS AT DISCHARGE: 1. Omeprazole 20 mg daily. 2. Lisinopril 40 mg daily. 3. Diltiazem 120 mg daily. 4. Atorvastatin 20 mg daily. 5. Aspirin 81 mg daily. 6. Vitamin B 1 capsule daily. 7. Propranolol 60 mg daily. 8. Magnesium 250 mg daily. HOSPITAL COURSE OF STAY: For full details, please refer to the full medical record. In summary, Ms. Sy is a 71-year-old female with past medical history as per above, who presented to the ER with concern for back pain between her shoulder blades that radiated into her chest. She has been treating this with Motrin and a heating pad, but then noted that she has some shortness of breath with exertion. This has been ongoing for some time. It is not new but, given this new onset of chest pain, she went to the emergency room for further evaluation. Her EKG showed sinus rhythm with right bundle branch block, which is similar to previous EKGs. Her troponins were negative. Her D- dimer was less than 200. She had a chest x-ray that showed no active disease, a CT of the chest that showed several non-calcified nodules which are unchanged with recommended followup and a small hiatal hernia. CT of the abdomen was negative for aortic aneurysm or any other acute findings. She was admitted to telemetry where she has been in sinus rhythm with occasional PVCs. EKG has remained unchanged and as reported has remained negative. She did undergo a stress test with nuclear imaging, which showed no fixed or reversible perfusion defects. The patient's transthoracic echocardiogram reads as follows: Global left ventricular wall motion and contractility are within normal limits. There is normal left ventricular systolic function. The estimated ejection fraction is 55% to 60%. The right ventricular global systolic function is normal. There is evidence of aortic sclerosis as well as stenosis. There is mild aortic regurgitation. There is [id number] mitral regurgitation. There is physiologic tricuspid regurgitation. Patient's vital signs and status remains roughly unchanged. She feels ready for discharge to home and is happy that the cause is noncardiac, although she does still have some complaints and concern for becoming more easily fatigued. We did discuss her anemia, which may be contributing to this. The patient's hemoglobin and hematocrit was 10.8 and 34 upon admission but did improve to 11.3 and 36. Iron studies showed the patient's ferritin level was 10.7. Her differential shows a normocytic normochromic anemia and being that her blood levels improved here in the hospital, it is unclear if there is an acute bleeding process, although none was found. We did request a stool guaiac, but the patient was unable to provide a sample and declined to have one taken prior to admission via rectal exam. I did advise the patient that she should follow up with her physician for further workup of this and also asked that she get a followup CBC in 2 to 3 days prior to her appointment with Dr. Hernandez so that there could be a point of comparison. CONCERNS AT DISCHARGE: The patient is discharged to home on 10/18/16 with planned followup with Dr. Hernandez on 10/21/16. OUTPATIENT FOLLOWUP CONCERNS: The patient is to have further evaluation of anemia with her most recent hemoglobin being 11.3. This is new as of this admission. There may be a dilutional component but otherwise, the patient is stable with no signs and symptoms of bleeding and improved hemoglobin and hematocrit here in the hospital. DIET: Heart healthy diet. ACTIVITY: As tolerated. CONDITION: Stable. DISPOSITION: To home. TIME SPENT: Time spent on this discharge was approximately 45 minutes. Again, this is only a brief summary of the patient's hospital course of stay. For full details, please refer to the full medical record. If you have any further questions or need further assistance, please feel free to contact me at . ANASTASIA ANN, LEGAL INTERN [id number]/[facility] #: [id number] BRADY
== END 2016-10-18 17:25 | disposition home or self-care (01) ==
LOC: ED 13:12 → MEDTELE 15:42
PROVIDERS: ADMIT Internal Medicine; ATTEND Internal Medicine
DX: R07.9 Chest pain, unspecified (principal); D64.9 Anemia, unspecified; I10 Essential (primary) hypertension; E78.5 Hyperlipidemia, unspecified; K21.9 Gastro-esophageal reflux disease without esophagitis; I20.9 Angina pectoris, unspecified; M19.90 Unspecified osteoarthritis, unspecified site; R06.02 Shortness of breath; I45.10 Unspecified right bundle-branch block; Z79.82 Long term (current) use of aspirin; Z79.899 Other long term (current) drug therapy; Z87.891 Personal history of nicotine dependence
CPT/HCPCS: 36415; 71010; 71250; 74150; 78452; 80048; 80053; 80061; 82607; 82728; 82746; 83540; 83550; 83605; 84484; 85025; 85379; 93005; 93017; 93306; 96372; 99283; A9270-GY; A9502; G0378; J1644

== ENCOUNTER 2017-09-21 08:17 | Emergency (ER) | payer MEDICARE ==
--- NOTE | 2017-09-21 09:37 | ED ---
Abdominal Pain/Female - HPI Summary HPI Summary: Patient is a 72-year-old female who presents emergency department for right lower quadrant abdominal pain 4 days. Patient describes pain as sharp and intermittent. No modifying factors. No associated symptoms of nausea, vomiting , diarrhea or constipation. She denies urinary symptoms. Denies recent upper respiratory symptoms, cough or fever. Patient has had numerous abdominal surgeries including cholecystectomy, appendectomy, hernia repair, gastric bypass. No history of bowel obstruction. Symptoms are moderate in severity. - History of Current Complaint Chief Complaint: EDAbdPain Stated Complaint: ABD PAIN Time Seen by Provider: 09/21/17 08:32 Hx Obtained From: Patient Pain Intensity: 10 Allergies/Adverse Reactions: Allergies Allergy/AdvReac Type Severity Reaction Status Date / Time Iodinated Contrast- Oral and Allergy Anaphylatic Verified 09/21/17 08:26 IV Dye Shock Home Medications: Home Medications Lisinopril TAB* [Prinivil TAB*] 40 mg PO DAILY 09/21/17 [History Confirmed 09/21] Propranolol LA CAP* [Inderal LA CAP*] 60 mg PO DAILY 09/21/17 [History Confirmed 09/21/17] PMH/Surg Hx/FS Hx/Imm Hx Previously Healthy: Yes Endocrine/Hematology History: Reports: Hx Anemia Denies: Hx Diabetes Cardiovascular History: Reports: Hx Angina - RESOLVED, Hx Hypercholesterolemia, Hx Hypertension - on meds, Hx Peripheral Vascular Disease, Hx Rheumatic Fever - 13 years old, Other Cardiovascular Problems/Disorders - LBBB Denies: Hx Coronary Artery Disease, Hx Myocardial Infarction, Hx Pacemaker/ ICD Respiratory History: Denies: Hx Asthma, Hx Chronic Obstructive Pulmonary Disease (COPD) GI History: Reports: Hx Gall Bladder Disease - removed, Hx Gastroesophageal Reflux Disease, Hx Hiatal Hernia, Other GI Disorders - hx of SBO, Hx of cololitis History: Reports: Other Problems/Disorders - microhematuria Denies: Hx Renal Disease Musculoskeletal History: Reports: Hx Arthritis - HIPS, LOW BACK, Hx Back Problems Denies: Hx Osteoporosis Sensory History: Reports: Hx Cataracts - Left, Hx Contacts or Glasses - reading Denies: Hx Hearing Aid Opthamlomology History: Reports: Hx Cataracts - Left, Hx Contacts or Glasses - reading Neurological History: Reports: Hx Headaches - DAILY, Hx Migraine, Other Neuro Impairments/Disorders - CHRONIC HEADACHES Psychiatric History: Denies: Hx Panic Disorder - Cancer History Hx Chemotherapy: No Hx Radiation Therapy: No - Surgical History Surgery Procedure, Year, and Place: TOTAL HYSTERECTOMY, GALLBLADDER, GASTRIC BYPASS, TUMOR REMOVED FROM RIGHT SHOULDER, 3 HERNIA'S, REMOVAL OF ABCESS AFTER LAST HERNIA REPAIR WITH MESH PLACEMENT; 2 HAMMER TOE SURGERIES, CATARACT RIGHT EYE DR. CACERES, TWISTED INTESTIONS - REPAIRED; APPY Hx Anesthesia Reactions: No Infectious Disease History: No Infectious Disease History: Denies: Traveled Outside the [place] in Last 30 Days - Family History Known Family History: Positive: Cardiac Disease - Father - [place] at 52, at 52 , Other - nerg: FAMILY BREAST [place] - Social History Occupation: Retired Lives: With Family Alcohol Use: Occasionally Alcohol Amount: 1 GLASS/WEEK Hx Substance Use: No Substance Use Type: Reports: None Hx Tobacco Use: Yes Smoking Status (MU): Former Smoker Type: Cigarettes Amount Used/How Often: 1.5 ppd 40 years Have You Smoked in the Last Year: No Review of Systems Constitutional: Negative Eyes: Negative ENT: Negative Cardiovascular: Negative Negative: Chest Pain Respiratory: Negative Negative: Shortness Of Breath, Cough Positive: Abdominal Pain. Negative: Vomiting, Diarrhea, Nausea Genitourinary: Negative Negative: burning, dysuria, frequency Musculoskeletal: Negative Neurological: Negative All Other Systems Reviewed And Are Negative: Yes Physical Exam Triage Information Reviewed: Yes Vital Signs On Initial Exam: Initial Vitals Temp Pulse Resp BP Pulse Ox 96.8 F 65 20 162/103 95 09/21/17 08:22 09/21/17 08:22 09/21/17 08:22 09/21/17 08:22 09/21/17 08:22 Vital Signs Reviewed: Yes Appearance: Positive: Well-Appearing - Patient sitting up in bed in no acute distress. Pleasant. present. Skin: Positive: Warm, Dry Head/Face: Positive: Normal Head/Face Inspection Eyes: Positive: Normal Neck: Positive: Supple Respiratory/Lung Sounds: Positive: Clear to Auscultation, Breath Sounds Present Cardiovascular: Positive: Normal, RRR Abdomen Description: Positive: Other: - Obese. Abdomen is soft with marked tenderness to the right lower quadrant with guarding. No rigidity. No CVA tenderness bilaterally. Bowel Sounds: Positive: Hypoactive Neurological: Positive: Normal, CN Intact II-III Psychiatric: Positive: Normal Diagnostics - Vital Signs Vital Signs Temp Pulse Resp BP Pulse Ox 09/21/17 08:22 96.8 F 65 20 162/103 95 - Laboratory Result Diagrams: 09/21/17 09:48 09/21/17 09:48 Lab Statement: Any lab studies that have been ordered have been reviewed, and results considered in the medical decision making process. Abdominal Pain Fem Course/Dx - Course Course Of Treatment: Patient presenting with ongoing right lower quadrant abdominal pain. She is afebrile with stable vital signs. Patient's pain is currently minimal and she declines pain medication. Blood work is unremarkable. U/A shows elevate RBCs and small leukocytes, pt. states her urine always looks like this and she is asymptomatic, will send for culture. CT was done without contrast secondary to pt.'s severe dye allergy. CT scan per radiology shows constipation without acute findings, right lung nodule noted. Results were discussed with pt. She is resting comfortably on re-exam without pain. She is already aware of lung nodule and states it is being monitored. Recommend pt. increase fluids and fiber in diet and use OTC stool softener if needed. To call PCP for f.u apt. To return to ER if sxs change or worsen. Pt. understands and agrees with plan. - Diagnoses Differential Diagnosis: Positive: Abdominal Aortic Aneurysm, Bowel Obstruction, Constipation, Diverticulitis, Renal Colic, Urinary Tract Infection Provider Diagnoses: Abdominal pain, Constipation Discharge - Sign-Out/Discharge Documenting (check all that apply): Discharge/Admit/Transfer - Discharge Plan Condition: Good Disposition: HOME Patient Education Materials: Constipation (ED), Acute Abdominal Pain (ED) Referrals: Roxana Hernandez MD [Primary Care Provider] - Additional Instructions: Call your PCP to schedule a follow up appointment Increase fluids and fiber in diet Return to ER for increased pain, fever, vomiting or if concerned - Billing Disposition and Condition Condition: GOOD Disposition: HOME
[2017-09-21 09:46] LABS: Urine Appearance Cloudy; Urine Blood 2+ (Negative); Urine Color Yellow; Urine Ketones Negative (Negative); Urine Protein Negative (Negative); Urine Specific Gravity 1.013 (1.010-1.030); Urine Urobilinogen Negative (Negative)
[2017-09-21 09:59] LABS: ABS Basophils 0.1 10^3/ul (0-0.2); ABS Eosinophils 0.1 10^3/ul (0-0.6); ABS Lymphocytes 1.7 10^3/ul (1.0-4.8); ABS Monocytes 0.5 10^3/ul (0-0.8); ABS Neutrophils 5.1 10^3/ul (1.5-7.7); ABS Nucleated RBC 0 10^3/ul; Eosinophil % 0.9 % (0-6); Hematocrit 36 % (35-47); Hemoglobin 11.9 g/dl (12.0-16.0); Lymphocyte % 22.3 % (25-47); Mean Corpuscular HGB Conc 33 g/dl (31-36); Mean Corpuscular Hemoglobin 29 pg (27-31); Mean Corpuscular Volume 88 fL (80-97); Mean Platelet Volume 7.2 um3 (7.4-10.4); Nucleated Red Blood Cells % 0.1; Platelet Count 181 10^3/ul (150-450); Red Blood Count 4.08 10^6/ul (4.0-5.4); Red Cell Distribution Width 14 % (10.5-15); White Blood Count 7.4 10^3/ul (3.5-10.8)
[2017-09-21 10:16] LABS: EGFR Non-African American 76.2 (>60)
--- NOTE | 2017-09-21 10:23 | RAD ---
Indication: Right lower quadrant pain. CT of the abdomen and pelvis was performed without oral or IV contrast administration. Coronal and sagittal reconstructed images were obtained. Comparison is made with previous exam dated October 16, 2015. Coronal and sagittal reconstructed images were obtained. The lung bases demonstrate no pleural fluid, air. A nodule is noted in the right middle lobe consistent with calcified granuloma. No pleural fluid is identified. Heart is of normal size without pericardial effusion. Liver is normal in size. No focal lesions or intrahepatic ductal dilatation is noted. Patient is status post cholecystectomy.. Common duct is not dilated. The pancreas demonstrates calcifications from prior pancreatitis. Common duct is not dilated. Spleen is normal in size. No adrenal lesions are noted. The kidneys demonstrate no hydronephrosis in either kidney. No hydroureter is noted. No retroperitoneal lymphadenopathy. Aorta and inferior vena cava are unremarkable. Atherosclerotic aorta is noted. The colon is filled with stool. The patient status post gastric bypass surgery. The appendix is not visualized. Diverticulosis without definite evidence of diverticulitis is noted. The patient is status post hysterectomy. Patient is status post anterior abdominal wall hernia repair. IMPRESSION: No obstructive uropathy is noted. Appendix is not visualized. Calcified granuloma right lower lobe. Patient status post hernia repair.
[2017-09-21 11:05] VITALS: BP 124/74
== END 2017-09-21 11:03 | disposition home or self-care (01) ==
LOC: ED 08:17
DX: K59.00 Constipation, unspecified (principal); R10.31 Right lower quadrant pain; D64.9 Anemia, unspecified; I10 Essential (primary) hypertension; I49.3 Ventricular premature depolarization; I44.7 Left bundle-branch block, unspecified; E78.00 Pure hypercholesterolemia, unspecified; K21.9 Gastro-esophageal reflux disease without esophagitis; K44.9 Diaphragmatic hernia without obstruction or gangrene; G43.909 Migraine, unspecified, not intractable, without status migrainosus; Z90.49 Acquired absence of other specified parts of digestive tract; Z90.89 Acquired absence of other organs; Z98.84 Bariatric surgery status; Z90.710 Acquired absence of both cervix and uterus; Z91.041 Radiographic dye allergy status; Z87.891 Personal history of nicotine dependence
CPT/HCPCS: 36415; 74176; 80053; 81003; 81015; 83605; 83690; 84484; 85025; 86140; 87086; 93005; 99281

== ENCOUNTER 2018-08-04 13:36 | Emergency (ER) | payer MEDICARE ==
--- NOTE | 2018-08-04 18:12 | ED ---
Abdominal Pain/Female - HPI Summary HPI Summary: A 73 y/o female presents to [facility] with a chief complaint of abdominal pain since 07/28/18. At triage she rated her pain as a 10/10 in severity. She reports that her abdominal pain radiates to her back. She describes her pain as a pressure and is constant. The patient reports that she has a Hx of hernia. She reports some chills and headaches but denies fever, N/V, CP, SOB, edema, urinary symptoms, cough, runny nose or abnormal bowel movements. She does not believe that her pain is associated with eating. Her appetite has not decreased. - History of Current Complaint Chief Complaint: EDLuarynin Stated Complaint: ABD PAIN PER PT Time Seen by Provider: 08/04/18 17:47 Hx Obtained From: Patient Onset/Duration: Sudden Onset, Lasting Days, Still Present Timing: Days Severity Initially: Severe Severity Currently: Severe Pain Intensity: 10 Pain Scale Used: 0-10 Numeric Location: Diffuse Radiates: Yes Radiates to: Back Character: Other: - pressure Aggravating Factor(s): Nothing Alleviating Factor(s): Nothing Associated Signs and Symptoms: Positive: Back Pain. Negative: Fever, Cough, Chest Pain, Decreased Appetite, Nausea, Vomiting Allergies/Adverse Reactions: Allergies Allergy/AdvReac Type Severity Reaction Status Date / Time Iodinated Contrast- Oral and Allergy Anaphylatic Verified 04/13/18 14:27 IV Dye Shock Home Medications: Home Medications Atorvastatin* [Lipitor*] 40 mg PO DAILY 08/04/18 [History Confirmed 08/04/18] Omeprazole CAP (NF) [Prilosec CAP* 20 MG] 20 mg PO DAILY 08/04/18 [History Confirmed 08/04/18] Propranolol HCl [Propranolol HCl ER] 60 mg PO DAILY 08/04/18 [History Confirmed 08/04/18] dilTIAZem HCl [Cartia Xt] 120 mg PO DAILY 08/04/18 [History Confirmed 08/04/18] PMH/Surg Hx/FS Hx/Imm Hx Endocrine/Hematology History: Reports: Hx Anemia Denies: Hx Diabetes Cardiovascular History: Reports: Hx Angina - RESOLVED, Hx Hypercholesterolemia, Hx Hypertension - on meds, Hx Peripheral Vascular Disease, Hx Rheumatic Fever - 13 years old, Other Cardiovascular Problems/Disorders - LBBB Denies: Hx Coronary Artery Disease, Hx Myocardial Infarction, Hx Pacemaker/ ICD Respiratory History: Denies: Hx Asthma, Hx Chronic Obstructive Pulmonary Disease (COPD) GI History: Reports: Hx Gall Bladder Disease - removed, Hx Gastroesophageal Reflux Disease, Hx Hiatal Hernia, Other GI Disorders - hx of SBO, Hx of cololitis History: Reports: Other Problems/Disorders - microhematuria Denies: Hx Renal Disease Musculoskeletal History: Reports: Hx Arthritis - HIPS, LOW BACK, Hx Back Problems Denies: Hx Osteoporosis Sensory History: Reports: Hx Cataracts - Left, Hx Contacts or Glasses - reading Denies: Hx Hearing Aid Opthamlomology History: Reports: Hx Cataracts - Left, Hx Contacts or Glasses - reading Neurological History: Reports: Hx Headaches - DAILY, Hx Migraine, Other Neuro Impairments/Disorders - CHRONIC HEADACHES Psychiatric History: Denies: Hx Panic Disorder - Cancer History Hx Chemotherapy: No Hx Radiation Therapy: No - Surgical History Surgery Procedure, Year, and Place: TOTAL HYSTERECTOMY, GALLBLADDER, GASTRIC BYPASS, TUMOR REMOVED FROM RIGHT SHOULDER, 3 HERNIA'S, REMOVAL OF ABCESS AFTER LAST HERNIA REPAIR WITH MESH PLACEMENT; 2 HAMMER TOE SURGERIES, CATARACT BILAT EYE DR. CACERES, TWISTED INTESTIONS - REPAIRED; APPY Hx Anesthesia Reactions: No Infectious Disease History: No Infectious Disease History: Denies: Traveled Outside the [place] in Last 30 Days - Family History Known Family History: Positive: Cardiac Disease - Father - [place] at 52, at 52 , Other - nerg: FAMILY BREAST [place] - Social History Alcohol Use: Occasionally Alcohol Amount: 1 GLASS/WEEK Hx Substance Use: No Substance Use Type: Reports: None Hx Tobacco Use: Yes Smoking Status (MU): Former Smoker Type: Cigarettes Amount Used/How Often: 1.5 ppd 40 years Have You Smoked in the Last Year: No Review of Systems Positive: Chills. Negative: Fever Negative: Nasal Discharge Negative: Chest Pain Negative: Shortness Of Breath, Cough Positive: Abdominal Pain, Other - Positive: patient reports normal bowel movements. Negative: Vomiting, Nausea Positive: no symptoms reported Positive: Headache All Other Systems Reviewed And Are Negative: Yes Physical Exam - Summary Physical Exam Summary: Constitutional: Well-developed, Well-nourished, Alert. (-) Distressed Skin: Warm, Dry HENT: Normocephalic; Atraumatic Eyes: Conjunctiva normal Neck: Musculoskeletal ROM normal neck. (-) JVD, (-) Stridor, (-) Tracheal deviation Cardio: Rhythm regular, rate normal, Heart sounds normal; Intact distal pulses; The pedal pulses are 2+ and symmetric. Radial pulses are 2+ and symmetric. (-) Murmur Pulmonary/Chest wall: Effort normal. (-) Respiratory distress, (-) Wheezes, (-) Rales Abd: Soft, TTP LLQ subcutaneous inferior right umbilicus. (-) Distension, (-) Guarding, (-) Rebound Musculoskeletal: (-) Edema Lymph: (-) Cervical adenopathy Neuro: Alert, Oriented x3 Psych: Mood and affect Normal Triage Information Reviewed: Yes Vital Signs On Initial Exam: Initial Vitals Temp Pulse Resp BP Pulse Ox 96.7 F 71 14 206/86 97 08/04/18 13:47 08/04/18 13:47 08/04/18 13:47 08/04/18 13:47 08/04/18 13:47 Vital Signs Reviewed: Yes Diagnostics - Vital Signs Vital Signs Temp Pulse Resp BP Pulse Ox 08/04/18 16:24 97.6 F 65 16 221/89 99 08/04/18 13:47 96.7 F 71 14 206/86 97 - Laboratory Result Diagrams: 08/04/18 18:43 08/04/18 18:43 Lab Statement: Any lab studies that have been ordered have been reviewed, and results considered in the medical decision making process. - CT abdomen/pelvis CT Interpretation Completed By: Radiologist Summary of CT Findings: 1. Stable small hiatal hernia. 2. Stable colonic diverticulosis without evidence for acute diverticulitis. ED physician has reviewed this imaging report. Re-Evaluation - Re-Evaluation First Eval Re-Evaluation Time: 20:37 Change: Improved Comment: Discussed results. Patient is ready for discharge. Abdominal Pain Fem Course/Dx - Course Course Of Treatment: A 73 y/o female presents to [facility] with a chief complaint of abdominal pain since 07/28/18. She reports that her abdominal pain radiates to her back. The patient reports that she has a Hx of hernia. She reports some chills and headaches but denies fever, N/V, CP, SOB, edema, urinary symptoms, cough, runny nose or abnormal bowel movements. The physical exam revealed TTP LLQ subcutaneous inferior right umbilicus, no rebound or guarding. Abdomen/pelvis CT impression: 1. Stable small hiatal hernia. 2. Stable colonic diverticulosis without evidence for acute diverticulitis. Bloodwork, chemistries and urines obtained. Urine Blood 2+, Urine RBC 2+, Ur Squamous Epith Cells present. In the ED course the patient was given Tylenol PO. The patient will be discharged home and follow up with her PCP. She is agreeable with this plan. - Diagnoses Provider Diagnoses: Abdominal pain Discharge - Sign-Out/Discharge Documenting (check all that apply): Patient Departure - DC Patient Received Moderate/Deep Sedation with Procedure: No - Discharge Plan Condition: Improved Disposition: HOME Patient Education Materials: Abdominal Pain (ED) Print Language: PAK[place]ANI Referrals: Roxana Hernandez MD [Primary Care Provider] - - Billing Disposition and Condition Condition: IMPROVED Disposition: Home - Attestation Statements Document Initiated by Carlos: Yes Documenting Scribe: Petr Bryant Provider For Whom Carlos is Documenting (Include Credential): Shelbie Mendez MD Scribe Attestation: IPetr scribed for Shelbie Faustin MD on 08/04/18 at 2246. Scribe Documentation Reviewed: Yes Provider Attestation: The documentation as recorded by the Petr licea accurately reflects the service I personally performed and the decisions made by , Shelbie Faustin MD Status of Scribe Document: Viewed
[2018-08-04 18:46] LABS: Urine Appearance Clear; Urine Bacteria Absent (Absent); Urine Bilirubin Negative (Negative); Urine Blood 2+ (Negative); Urine Color Yellow; Urine Glucose Negative (Negative); Urine Ketones Negative (Negative); Urine Nitrite Negative (Negative); Urine Protein Negative (Negative); Urine Red Blood Cell 2+(6-10/hpf) (Absent); Urine Specific Gravity 1.009 (1.010-1.030); Urine Squamous Epithelial Cell Present (Absent); Urine Urobilinogen Negative (Negative); Urine White Blood Cell Trace(0-5/hpf) (Absent)
[2018-08-04 18:56] LABS: ABS Basophils 0.1 10^3/ul (0-0.2); ABS Eosinophils 0.1 10^3/ul (0-0.6); ABS Lymphocytes 2.3 10^3/ul (1.0-4.8); ABS Monocytes 0.6 10^3/ul (0-0.8); ABS Neutrophils 5.2 10^3/ul (1.5-7.7); ABS Nucleated RBC 0 10^3/ul; Eosinophil % 0.9 %; Hematocrit 34 % (33-41); Lymphocyte % 27.7 %; Mean Corpuscular HGB Conc 33 g/dL (31-36); Mean Corpuscular Hemoglobin 28 pg (27-31); Mean Corpuscular Volume 86 fL (80-97); Mean Platelet Volume 6.9 fL (7.4-10.4); Nucleated Red Blood Cells % 0; Platelet Count 212 10^3/uL (150-450); Red Blood Count 3.96 10^6 /uL (3.70-4.87); Red Cell Distribution Width 15 % (10.5-15); White Blood Count 8.2 10^3/uL (3.5-10.8)
[2018-08-04 19:10] LABS: Albumin 4.1 g/dL (3.2-5.2); Albumin/Globulin Ratio 1.6 (1-3); BUN/Creatinine Ratio 23.5 (8-20); Calcium 9.5 mg/dL (8.6-10.3); EGFR African American 102.9 (>60); EGFR Non-African American 85.1 (>60); Globulin 2.5 g/dL (2-4); Potassium 4.5 mmol/L (3.5-5.0); Total Bilirubin 0.4 mg/dL (0.2-1.0); Total Protein 6.6 g/dL (6.4-8.9)
[2018-08-04] MEDS ORDERED: Acetaminophen TAB* 325 MG PO ONE (20:06)
[2018-08-04 20:47] VITALS: BP 188/86
== END 2018-08-04 20:47 | disposition home or self-care (01) ==
LOC: ED 13:36
DX: K57.90 Diverticulosis of intestine, part unspecified, without perforation or abscess without bleeding (principal); D64.9 Anemia, unspecified; I10 Essential (primary) hypertension; I73.9 Peripheral vascular disease, unspecified; E78.00 Pure hypercholesterolemia, unspecified; K21.9 Gastro-esophageal reflux disease without esophagitis; K44.9 Diaphragmatic hernia without obstruction or gangrene; Z91.041 Radiographic dye allergy status; Z79.899 Other long term (current) drug therapy; Z98.84 Bariatric surgery status; Z90.49 Acquired absence of other specified parts of digestive tract; Z87.891 Personal history of nicotine dependence
CPT/HCPCS: 36415; 74176; 80053; 81003; 81015; 83605; 83690; 85025; 87086; 99283; A9270-GY

== ENCOUNTER 2018-08-23 10:42 | Inpatient (IN) | payer MEDICARE ==
[~2018-08-23 10:42] MED LIST changes: +Buffered Lidocaine 1% SYRIN* 1 ML/SYRINGE INTRADERM ONE; -Buffered Lidocaine 1% SYRIN* 3 ML/SYR SYRINGE INTRADERM ONE; +Famotidine IV* 10 MG/ML 2 ML (20 mg) IV ONE; +Lactated Ringers 1000 ML Bag* 1,000 ML IV SCH
[2018-08-23] MEDS ORDERED: Buffered Lidocaine 1% SYRIN* 1 ML/SYRINGE INTRADERM ONE (10:59)
[2018-08-23] MEDS ORDERED: ceFAZolin 2 GM PREMIX in ORs 2 GM/50 ML BAG IVPB ONE (10:59)
[2018-08-23] MEDS ORDERED: Famotidine IV* 10 MG/ML 2 ML (20 mg) ONE (10:59)
[2018-08-23] MEDS ORDERED: Lidocaine 2% PF * 5 ML VIAL ONE (11:24)
[2018-08-23] MEDS ORDERED: Dexamethasone IV* 4 MG/ML 1 ML (4 MG) ONE (11:24)
[2018-08-23] MEDS ORDERED: Ondansetron INJ* 2 MG/ML VIAL ONE ×2 (11:24→17:14)
[2018-08-23] MEDS ORDERED: fentaNYL* 50 MCG/ML 2 ML VIAL (100 MCG VIAL) ONE (11:24)
[2018-08-23] MEDS ORDERED: Propofol* 10 MG/ML 20 ML BTL ONE (11:24)
[2018-08-23] MEDS ORDERED: Phenylephrine 10 MG/ML VIAL* 1 ML VIAL ONE (11:24)
[2018-08-23] MEDS ORDERED: Midazolam* 1 MG/ML 5 ML VIAL (5 MG) ONE (11:25)
[2018-08-23] MEDS ORDERED: Rocuronium* 10 MG/ML VIAL ONE (11:25)
[2018-08-23] MEDS ORDERED: EPHEDrine (Pressors)* 50 MG/ML VIAL ONE (12:41)
[2018-08-23] MEDS ORDERED: Bupivacaine 0.25% EPI 200,000* 30 ML SDV ONE (12:58)
[2018-08-23] MEDS ORDERED: Naloxone* 0.4 MG/ML 1 ML VIAL IV PRN (14:57)
[2018-08-23] MEDS ORDERED: Ondansetron INJ* 2 MG/ML VIAL IV PRN ×2 (14:57→16:32)
[2018-08-23] MEDS ORDERED: fentaNYL* 50 MCG/ML 2 ML VIAL (100 MCG VIAL) IV PRN (14:57)
[2018-08-23] MEDS ORDERED: Ketorolac INJ* 30 MG/ML 1 ML VIAL ONE (14:58)
[2018-08-23] MEDS ORDERED: Glycopyrrolate IV* 0.2 MG/ML 1 ML VIAL ONE (15:11)
[2018-08-23] MEDS ORDERED: Neostigmine Methylsulfate* 1 MG/ML 10 ML VIAL (1 mg/ml) ONE (15:11)
[2018-08-23] MEDS ORDERED: HYDROmorphone INJ1* 1 MG/ML SYRINGE ONE ×2 (15:24→16:07)
[2018-08-23] MEDS: HYDROmorphone INJ1* 1 MG/ML SYRINGE IV PRN ×2 (16:07→16:33)
[2018-08-23] MEDS ORDERED: Morphine 4 MG/ML VIAL (1 ml) 4 MG/ML VIAL IV PRN (18:51)
[2018-08-23] MEDS: Lactated Ringers 1000 ML Bag* 1,000 ML IV SCH (19:45)
--- NOTE | 2018-08-23 22:37 | OP ---
CC: Angela Grullon NP * DATE OF OPERATION: 08/23/18 - ROOM #340 DATE OF : 47 SURGEON: Jose Villafana MD. REGISTERED NURSE POST PARTUM: Nan Estrella NP; AMADOU Wong. ANESTHESIOLOGIST: Dr. Jackson. ANESTHESIA: General anesthesia. PRE-OP DIAGNOSIS: Ventral hernia. POST-OP DIAGNOSES: Ventral hernia and infected mesh. OPERATIVE PROCEDURE: 1. Exploratory laparotomy. 2. Excision of sinus tract and abscess cavity. 3. Removal of [place]-Jeremiah mesh. 4. Closure of ventral hernia with biologic mesh. ESTIMATED BLOOD LOSS: Less than 100 cc. FLUIDS: 3100 cc of crystalloid fluid given. SPECIMEN: 1. Fluid for aerobic and anaerobic culturing. 2. [place]-Jeremiah mesh along with hernia sac. DRAINS: Small Armour drain at the incision site with a vacuum dressing placed over this. DESCRIPTION OF PROCEDURE: The patient was identified in the preoperative area. Her abdomen was marked. She continued to have pain with mild redness at what appeared to be a hernia. She was brought to the operating room, placed on the operating room table in the supine position. Preoperative antibiotics were given. Sequential devices were placed on bilateral lower extremities. General anesthesia was induced. The patient's abdomen was prepped and draped in standard surgical fashion after a Blood catheter was inserted. A midline incision was made, carried out through previous incision site overlying the palpable lesion. We extended to the site, and we cleared out the fascia laterally on the right and also on the left. Inferiorly, there was much more scarring at this site, and we were able to clear up around the area of the defect. This lesion was approximately 3 cm. It was dissected right to the anterior abdominal wall, and it was at this point where we opened it up at the neck, thinking this was probably something other than a hernia sac and indeed we had loretta pus draining. This was cultured. We then ligated this abscess cavity/sinus tract and passed it off as specimen. We then suctioned out additional pus posterior to the fascial layer that had been incised and indeed we found a balled up area of [place]-Jeremiah mesh. We extended the fascial incision inferiorly and superiorly and removed the lower portion of the mesh with ease as this came off without much difficulty. As it extended to the superior aspect of this mesh, it became a little more trying. We got into the plane anterior to the mesh, clearing it off the rectus musculature and then taking tacking stitches as we saw them. Intraabdominally, we cleared the mesh off of the contents below, which consisted mostly omentum and also small bowel. These were not terribly adhered, would come down with mostly blunt or sharp dissection. Ultimately, the mesh was removed in its entirety. We did cut it into two pieces as part of our working. I could not find any additional portions of mesh intraabdominally. I could feel areas that were tacked were still intraabdominal but these were left in place as they were too difficult to get to. We then reviewed the abdomen for eviscerated portion of small bowel. This was all intact without any injury. It did appear that we pull down on the omentum and transverse colon and got into a serosal incident that required sutures. To place these sutures effectively, I did increase the incision of the fascia superiorly so that I could place these easily since this portion of the colon was adhered to the abdominal wall superiorly and possibly to the area of the Veena limb. We then copiously irrigated the abdomen. Hemostasis was excellent. There were no injuries to the intestines. We then closed the superior aspect of the fascia with interrupted #1 Prolene sutures. For the first few centimeters, this was where we had more intact fascia where the initial [place]-Je[place]iah mesh was overlying the area. At the more inferior aspect, we converted to Vicryl sutures as I knew this was an area that had been affected and this was a contaminated case. We then closed our midline again with [id number] stitches using #1 Vicryl on the inferior aspect where we were going to place a biologic mesh. Next, a XenMatrix mesh was opened up. This was a 12 x 8 cm mesh. We just cut the lower corners off and placed this over the midline incision. We made flaps of skin and we planned this as an onlay only. We sutured to the fascia all around with 0 Vicryl sutures to the anterior abdominal wall through good fascia where we identified it laterally. I had taken the umbilicus down, but we did not re-tack this down at all. We thought about excising altogether, but it was a relatively shallow umbilicus and we just kept it in place. Additional 2-0 Vicryl stitches were placed in subcutaneous tissue and then we reapproximated the skin incision with skin marilin. A Robert drain was then inserted between two marilin, this was a 0.25-inch Robert drain, and then a Prevena vacuum dressing was then placed at the site. The patient was woken up, Blood catheter removed, and she was transferred to the PACU in stable condition for planned admission to the hospital. [id number]/[facility] #: [id number] BRADY
[2018-08-23] MEDS: Heparin VIAL(*) 5000 UNITS/ML VIAL (FIVE THOUSAND) SUBCUT SCH (23:40)
[2018-08-24] MEDS: Lactated Ringers 1000 ML Bag* 1,000 ML IV SCH ×3 (03:45→21:09)
[2018-08-24] MEDS: Heparin VIAL(*) 5000 UNITS/ML VIAL (FIVE THOUSAND) SUBCUT SCH ×3 (05:46→22:56)
[2018-08-24] MEDS: Morphine INJ* 2 MG/ML 1 ML SYRINGE (TWO MG - NEW SYRINGE VERSION) IV PRN ×2 (05:59→09:54)
[2018-08-24 08:23] LABS: Albumin/Globulin Ratio 1.5 (1-3); BUN/Creatinine Ratio 31.5 (8-20); EGFR African American 134.3 (>60); Potassium 4.3 mmol/L (3.5-5.0); Total Bilirubin 0.3 mg/dL (0.2-1.0)
[2018-08-24 08:24] LABS: ABS Basophils 0 10^3/ul (0-0.2); ABS Eosinophils 0 10^3/ul (0-0.6); ABS Lymphocytes 0.7 10^3/ul (1.0-4.8); ABS Monocytes 1.1 10^3/ul (0-0.8); ABS Neutrophils 19.2 10^3/ul (1.5-7.7); ABS Nucleated RBC 0 10^3/ul; Eosinophil % 0 %; Hematocrit 26 % (35-47); Hemoglobin 8.5 g/dL (12.0-16.0); Lymphocyte % 3.5 %; Mean Corpuscular HGB Conc 32 g/dL (31-36); Mean Corpuscular Hemoglobin 28 pg (27-31); Mean Corpuscular Volume 86 fL (80-97); Mean Platelet Volume 7.5 fL (7.4-10.4); Nucleated Red Blood Cells % 0; Platelet Count 191 10^3/uL (150-450); Red Blood Count 3.08 10^6 /uL (3.70-4.87); Red Cell Distribution Width 15 % (10.5-15); White Blood Count 21.1 10^3/uL (3.5-10.8)
--- NOTE | 2018-08-24 08:45 | PN ---
<Sherly Wong - Last Filed: 08/24/18 08:27> Progress Note - Progress Note Date of Service: 08/24/18 Note: S: POD #1 Exploratory laparotomy with excision of abscess and hernia mesh; ventral hernia repair. Patient states she is feeling fine. She had moderate abdominal pain about the incision this morning that increases with ambulation, currently 4/10 pain. She denies any N/V, flatus, or bowel movement. She has ambulated a couple times since surgery, and is urinating without difficulty. Patient was placed on 2L O2 last night, but denies any SOB, cough, or lightheadedness. O: Vital Signs - 12 hr Temp Pulse Resp BP Pulse Ox 08/24/18 08:00 17 95 08/24/18 07:49 95 08/24/18 07:18 98.3 F 73 17 150/52 89 08/24/18 07:12 18 08/24/18 05:59 16 08/24/18 03:51 97.9 F 74 14 141/53 91 08/24/18 03:00 93 08/24/18 01:35 97.9 F 64 18 134/43 93 08/23/18 23:57 97.8 F 67 18 140/63 99 08/23/18 21:40 97.4 F 63 16 143/64 95 Intake and Output Last 24 Hours 08/22/18 08/23/18 08/24/18 08/25/18 06:59 06:59 06:59 06:59 Intake Total 3980 Output Total 500 Balance 3480 Weight 222 lb 221 lb Intake: IV Fluids 3980 LR 3980 Oral 0 Output: Urine 100 Blood 400 Other: # Bowel Movements 0 Laboratory Tests 08/24/18 07:45 WBC 21.1 H RBC 3.08 L Hgb 8.5 L Hct 26 L Absolute Neuts (auto) 19.2 H Absolute Lymphs (auto) 0.7 L PE: General: Patient is sitting upright in bed in NAD. Alert and oriented x 3. Lungs: CTA, bilaterally Heart: RRR. Grade II systolic murmur noted. Normal s1/s2. No pedal edema. Abdomen: Soft without distention, guarding or rigidity. Mild incisional tenderness. Hypo-active bowel sounds. Wound vac in place over vertical incision with bloody discharge noted, surrounding area without erythema. Current Medications Amlodipine Besylate (Norvasc Tab*) 10 mg PO QAM ALYSSA Diltiazem HCl (Cardizem Cd Cap*) 120 mg PO QAM ALYSSA Heparin Sodium (Porcine) (Heparin Vial(*)) 5,000 units SUBCUT Q8HR [facility] Last Admin: 08/24/18 05:46 Dose: 5,000 units Lactated Ringer's (Lactated Ringers 1000 Ml Bag*) 1,000 mls @ 125 mls/hr IV PER RATE [facility] Last Admin: 08/24/18 03:45 Dose: 125 mls/hr Morphine Sulfate (Morphine Inj (Syringe))*) 2 mg IV Q2H PRN PRN Reason: PAIN Last Admin: 08/24/18 05:59 Dose: 2 mg Morphine Sulfate (Morphine 4 Mg/Ml Vial (1 Ml)) 4 mg IV Q2H PRN PRN Reason: PAIN - SEVERE Ondansetron HCl (Zofran Inj*) 4 mg IV Q4H PRN PRN Reason: NAUSEA/VOMITING Pantoprazole Sodium (Protonix Tab*) 40 mg PO QAM [facility] Propranolol HCl (Inderal La Cap*) 60 mg PO QAM [facility] A: s/p exploratory laparotomy with excision of sinus tract, abscess, and hernia mesh; ventral hernia repair P: Patient has mild incisional pain controlled with morphine. Supplemental O2 as needed if sat <90%. Continue NPO until return of bowel function. Continue current medications. Patient had elevated WBC count which is likely reflective of abdominal abscess, continue to monitor, no other signs of active infection. Continue wound vac. <Jose Villafana - Last Filed: 08/24/18 16:40> Progress Note - Progress Note Note: Above note reviewed. Patient is now started on liquid diet. I started patient on antibiotics as concern for elevated white blood cell count in the face of a sinus tract and abscess removal. repeat labs in a.m. Advance diet tomorrow. Possible discharge home tomorrow on oral antibiotics.
[2018-08-24] MEDS: Pantoprazole TAB * 40 MG TAB PO SCH (10:13)
[2018-08-24] MEDS: Diltiazem CD CAP* 120 MG PO SCH (10:13)
[2018-08-24] MEDS: amLODIPine TAB* 5 MG PO SCH (10:13)
[2018-08-24] MEDS: Propranolol LA CAP* 60 MG PO SCH (10:13)
[2018-08-24] MEDS ORDERED: ceFAZolin 1 GM* X ONE DOSE (AddVan) IVPB ×4 (11:00→11:30)
[2018-08-24 11:49] LABS: TSH (Thyroid Stimulating Horm) 0.2 mcIU/mL (0.34-5.60)
[2018-08-24 13:18] LABS: Free T3 2.4 pg/mL (2.5-3.9)
[2018-08-24 13:21] LABS: Free T4 1.23 ng/dL (0.61-1.12)
--- NOTE | 2018-08-24 14:12 | CONS ---
CC: Dr. Roxana Hernandez; Dr. Jose Villafana CONSULTATION REPORT: DATE OF CONSULT: 08/24/3018 PRIMARY CARE PHYSICIAN: Dr. Roxana Hernandez. CONSULT REQUESTED BY: Dr. Jose Villafana. REASON FOR CONSULT: The patient requires telemetry, so she needs a Hospitalist consult. HISTORY OF PRESENT ILLNESS: A 73-year-old woman with history of stable angina, hypertension, migraines, and GERD, who was following with Dr. Villafana in clinic as a referral for acute onset of abdominal pain. She has a history of gastric bypass and an open umbilical repair in 2012. She also underwent a laparoscopic ventral hernia repair in 2003 with [place]-Jeremiah mesh. In 2014, she had an internal hernia secondary to gastric bypass and had that repaired. 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 She recently had an emergency room visit on 08/04/18 for acute onset of abdominal pain where CT scan revealed incarcerated ventral hernia without bowel. Given her persistent abdominal pain with multiple surgeries, her primary care physician referred her to Dr. Villafana, who noted physical exam with tender mid abdominal pain with palpable lesion in the mid abdomen that is tender with mild overlying skin changes with nonreducible hernia. Dr. Villafana thought that the patient's symptoms were from incarcerated intraperitoneal fat and he recommended ex-lap, lysis of adhesions, and ventral hernia repair with possible mesh removal. The patient was admitted for elective surgery and she went to the OR yesterday, on 08/23/18, where she was found to have ventral hernia with infected mesh, which was removed. She had excision of sinus tract and abscess cavity and she had closure of the ventral hernia with biologic mesh. After procedure, the patient was noted to have asymptomatic bradycardia to the 40s, so Dr. Villafana wanted the patient to be monitored on telemetry, which required a Hospitalist consult. The patient reports she has a history of low heart rate, she was told from her medications. She states that she gets lightheaded only if she quickly goes from lying down to standing position. If she stands up slowly, she has no symptoms. She has no sudden onset of lightheadedness, dizziness, chest pain, or palpitations. She denies history of thyroid disease. PAST MEDICAL HISTORY: 1. angina, stable 2. hypertension 3. acid reflux 4. chronic migraines. HOME MEDICATIONS: 1. Diltiazem 120 mg daily. 2. Amlodipine 10 mg daily. 3. Propranolol 60 mg daily. 4. Omeprazole 20 mg daily. 5. Lisinopril 40 mg daily. 6. Atorvastatin 40 mg daily. 7. Aspirin 81 mg daily. 8. Tylenol or ibuprofen for pain. 9. Vitamin D. 10. Magnesium. ALLERGIES: IODINATED CONTRAST causes anaphylactic shock. FAMILY HISTORY: Her father of a myocardial infarction at the age of 52. Her mother from emphysema due to smoking. SOCIAL HISTORY: She lives with her , who suffers from dementia. 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 She quit tobacco over 25 years ago and has an occasional glass of wine. She denies illicit substance use. PHYSICAL EXAM: The patient's heart rate was in the 70s, blood pressure 150/52, respiratory rate 12, oxygen saturation 95% on room air, afebrile. In general, well- appearing woman, alert, conversant, interactive. Neck: No JVD. Heart: Regular rate and rhythm. No murmurs, gallops, or rubs. Lungs: Clear to auscultation bilaterally. Abdomen with ventral open wound with wound VAC, appears clean, dry, and intact; nontender lateral to incision site. Soft. Extremities: Lower extremities without evidence of edema. DIAGNOSTIC STUDIES/LAB DATA: Labs reviewed and significant for CBC with leukocytosis of 21.1, hemoglobin 8.5 after surgery, normocytic. BMP with BUN/ creatinine 17/0.54. Calcium 8.0, which is mildly low but normal when corrected for low albumin. EKG with sinus bradycardia to 56, also notable for right bundle branch block which is unchanged from prior EKGs dating back to 2009. ASSESSMENT AND PLAN: Ms. Sy is a 73-year-old woman with a history of stable angina, hypertension, chronic migraines, and gastroesophageal reflux disease, who was admitted for an elective ventral hernia repair with removal of infected mesh. After procedure, she was noted to have asymptomatic bradycardia, so Medicine was consulted for further evaluation. 1. Bradycardia. Given her history of asymptomatic bradycardia in the context of taking 2 rate-lowering medications, notably diltiazem for chronic stable angina and propranolol for migraine prophylaxis, it is thought that her bradycardia is likely from these medications. I will add on a TSH to evaluate her for thyroid disease. As long as the patient is asymptomatic from her bradycardia, there is no indication for further workup. She can have her outpatient medications that are optimized by her primary care physician, if the patient feels this is necessary, for example, she may no longer need migraine prophylaxis or she may try other agents. 2. Angina. The patient can continue diltiazem 120 mg and her home atorvastatin. She may hold her aspirin for surgery. 3. Hypertension. She can continue lisinopril 40, amlodipine 10. 4. Migraine prophylaxis. Continue propranolol. 5. Gastroesophageal reflux disease. Continue omeprazole 20. Thank you for this interesting consult. We will continue to follow along with you. [id number]/[facility] #: [id number] BRADY
[2018-08-24] MEDS: ceFAZolin* 2 GM* Q8H (Duplex) IVPB SCH (21:10)
[2018-08-25] MEDS: ceFAZolin* 2 GM* Q8H (Duplex) IVPB SCH (04:31)
[2018-08-25] MEDS: Heparin VIAL(*) 5000 UNITS/ML VIAL (FIVE THOUSAND) SUBCUT SCH ×3 (05:37→22:57)
[2018-08-25] MEDS: Lactated Ringers 1000 ML Bag* 1,000 ML IV SCH (06:32)
[2018-08-25 06:44] LABS: ABS Lymphocytes 1.3 10^3/ul (1.0-4.8); ABS Monocytes 1.5 10^3/ul (0-0.8); ABS Neutrophils 14.4 10^3/ul (1.5-7.7); Hematocrit 28 % (35-47); Hemoglobin 8.6 g/dL (12.0-16.0); Lymphocyte % 7.8 %; Mean Corpuscular HGB Conc 31 g/dL (31-36); Mean Corpuscular Hemoglobin 27 pg (27-31); Mean Corpuscular Volume 86 fL (80-97); Mean Platelet Volume 7.6 fL (7.4-10.4); Platelet Count 217 10^3/uL (150-450); Red Blood Count 3.25 10^6 /uL (3.70-4.87); Red Cell Distribution Width 15 % (10.5-15); White Blood Count 17.3 10^3/uL (3.5-10.8)
[2018-08-25] MEDS: Propranolol LA CAP* 60 MG PO SCH (09:34)
[2018-08-25] MEDS: Pantoprazole TAB * 40 MG TAB PO SCH (09:34)
[2018-08-25] MEDS: amLODIPine TAB* 5 MG PO SCH (09:34)
[2018-08-25] MEDS: Diltiazem CD CAP* 120 MG PO SCH (09:34)
[2018-08-25] MEDS: Morphine INJ* 2 MG/ML 1 ML SYRINGE (TWO MG - NEW SYRINGE VERSION) IV PRN (09:35)
[2018-08-25 11:21] LABS: Albumin 3.4 g/dL (3.2-5.2); Albumin/Globulin Ratio 1.6 (1-3); Calcium 8.4 mg/dL (8.6-10.3); Globulin 2.1 g/dL (2-4); Potassium 4.1 mmol/L (3.5-5.0); Total Bilirubin 0.2 mg/dL (0.2-1.0); Total Protein 5.5 g/dL (6.4-8.9)
[2018-08-25] MEDS: Albuterol/Ipratropium NEB.SOL* Albuterol 2.5 MG/Ipratropium 0.5 MG 3 ML INH PRN ×2 (12:04→23:51)
--- NOTE | 2018-08-25 12:16 | PN ---
<Sherly Wong - Last Filed: 08/25/18 12:34> Progress Note - Progress Note Date of Service: 08/25/18 Note: S: POD #2 Exploratory laparotomy with excision of abscess and hernia mesh; ventral hernia repair. Patient states she is feeling fine. She is still experiencing some SOB and productive cough, though she notes this is better than it was yesterday. She has not needed supplemental O2 since yesterday morning. She denies any abdominal pain at rest, but occasionally has 10/10 pain when up and walking around that is resolved with rest. She is tolerating clear liquid diet and denies N/V. She is passing flatus, but has not experienced a bowel movement. She is urinating without difficulty. She is continuing to ambulate and use spirometer with readings near 1000 ml. O: Vital Signs - 12 hr Temp Pulse Resp BP Pulse Ox 08/25/18 09:57 18 08/25/18 09:35 18 08/25/18 07:58 97.8 F 81 20 161/63 98 08/25/18 03:42 98.0 F 74 18 147/53 95 Intake and Output Last 24 Hours 08/23/18 08/24/18 08/25/18 08/26/18 06:59 06:59 06:59 06:59 Intake Total 3980 3000 Output Total 500 1800 500 Balance 3480 1200 -500 Weight 222 lb 221 lb Intake: IV Fluids 3980 1960 LR 3980 1960 IVPB 120 ABX - CEFAZOLIN 120 Medicated IV 110 Ancef 110 Oral 0 810 Output: Urine 100 1800 500 Blood 400 Other: # Bowel Movements 0 0 PE: General: Patient is sitting upright in chair in NAD. Alert and oriented x 3. Lungs: Patient appears slightly SOB. Lung sound quiet bilateral bases without wheeze, rales, or rhonchi. Heart: RRR. Grade II systolic murmur noted. No pedal edema. Abdomen: Soft and non-tender, without distention. Hypo-active bowel sounds. Wound vac in place over vertical midline incision with serosanguinous discharge in tubing. Laboratory Tests 08/24/18 08/25/18 07:45 05:47 WBC 21.1 H 17.3 H RBC 3.08 L 3.25 L Hgb 8.5 L 8.6 L Hct 26 L 28 L Absolute Neuts (auto) 19.2 H 14.4 H Current Medications Albuterol/Ipratropium (Duoneb (Albuterol 2.5 Mg/Ipratropium 0.5 Mg)) 1 neb INH Q6H PRN PRN Reason: SOB/WHEEZING Last Admin: 08/25/18 12:04 Dose: 1 neb Amlodipine Besylate (Norvasc Tab*) 10 mg PO QAM [facility] Last Admin: 08/25/18 09:34 Dose: 10 mg Cephalexin HCl (Keflex Cap*) 250 mg PO QID [facility] Diltiazem HCl (Cardizem Cd Cap*) 120 mg PO QAM [facility] Last Admin: 08/25/18 09:34 Dose: 120 mg Heparin Sodium (Porcine) (Heparin Vial(*)) 5,000 units SUBCUT Q8HR [facility] Last Admin: 08/25/18 05:37 Dose: 5,000 units Potassium Chloride/Dextrose (D5w Ns 0.9% 20meq Kcl 1000 Ml*) 1,000 mls @ 75 mls /hr IV PER RATE [facility] Morphine Sulfate (Morphine Inj (Syringe))*) 2 mg IV Q2H PRN PRN Reason: PAIN Last Admin: 08/25/18 09:35 Dose: 2 mg Ondansetron HCl (Zofran Inj*) 4 mg IV Q4H PRN PRN Reason: NAUSEA/VOMITING Oxycodone/Acetaminophen (Percocet 5/325 Tab*) 1 tab PO Q4H PRN PRN Reason: PAIN Pantoprazole Sodium (Protonix Tab*) [facility] [place] Last Admin: 08/25/18 09:34 Dose: 40 mg Propranolol HCl (Inderal La Cap*) [facility] [place] Last Admin: 08/25/18 09:34 Dose: 60 mg A: Exploratory laparotomy with excision of abscess and hernia mesh; ventral hernia repair. P:Patient's abdominal pain is well controlled at this time with morphine. Continue wound vac, no signs of surrounding infection. WBC count is improving. She is continuing to have difficulty with SOB and cough, encouraged continued use of spriometer and ambulation. Begin flutter valve therapy to help improve lung function, and adjustment of IV fluid and oral antibiotics as per Dr. Villafana. <Jose Villafana - Last Filed: 08/26/18 08:04> Progress Note - Progress Note Note: Pt seen with PA-S and above note reviewed and agreed with. Possible d/c home tomorrow
[2018-08-25] MEDS: D5W NS 0.9% 20Meq KCL 1000 ML* 1,000 ML IV SCH (13:27)
[2018-08-25] MEDS: oxyCODONE/Acetamin 5/325 MG* TAB PO PRN (13:27)
[2018-08-25 13:28] LABS: BUN/Creatinine Ratio 22.7 (8-20); EGFR African American 106.5 (>60)
[2018-08-25] MEDS: Cephalexin CAP* 250 MG PO SCH ×3 (13:28→22:56)
--- NOTE | 2018-08-25 17:00 | CONSULT ---
Subjective Date of Service: 08/25/18 Interval History: TSH resulted low, with mild elevation in T4 and decrease in T3. Discussed with endo and thought more likely from acute infection/stress and operation. Recommended to repeat when outpatient and refer to Endo if persistently abnormal. Pt denies recent weight loss, thinning of hair, or hyperdefecation. Reports her mother had hyperthyroid. Denies taking levothyroxine. Review of Systems - Measurements Intake and Output: Intake and Output Last 24 Hours 08/23/18 08/24/18 08/25/18 08/26/18 06:59 06:59 06:59 06:59 Intake Total 3980 3000 400 Output Total 500 1800 500 Balance 3480 1200 -100 Weight 222 lb 221 lb Intake: IV Fluids 3980 1960 LR 3980 1960 IVPB 120 ABX - CEFAZOLIN 120 Medicated IV 110 Ancef 110 Oral 0 810 400 Output: Urine 100 1800 500 Blood 400 Other: # Bowel Movements 0 0 Objective Active Medications: Albuterol/Ipratropium (Duoneb (Albuterol 2.5 Mg/Ipratropium 0.5 Mg)) 1 neb INH Q6H PRN PRN Reason: SOB/WHEEZING Last Admin: 08/25/18 12:04 Dose: 1 neb Amlodipine Besylate (Norvasc Tab*) 10 mg PO QAM [facility] Last Admin: 08/25/18 09:34 Dose: 10 mg Cephalexin HCl (Keflex Cap*) 250 mg PO QID [facility] Last Admin: 08/25/18 13:28 Dose: 250 mg Diltiazem HCl (Cardizem Cd Cap*) 120 mg PO QAM [facility] Last Admin: 08/25/18 09:34 Dose: 120 mg Heparin Sodium (Porcine) (Heparin Vial(*)) 5,000 units SUBCUT Q8HR [facility] Last Admin: 08/25/18 13:28 Dose: 5,000 units Potassium Chloride/Dextrose (D5w Ns 0.9% 20meq Kcl 1000 Ml*) 1,000 mls @ 75 mls /hr IV PER RATE [facility] Last Admin: 08/25/18 13:27 Dose: 75 mls/hr Morphine Sulfate (Morphine Inj (Syringe))*) 2 mg IV Q2H PRN PRN Reason: PAIN Last Admin: 08/25/18 09:35 Dose: 2 mg Ondansetron HCl (Zofran Inj*) 4 mg IV Q4H PRN PRN Reason: NAUSEA/VOMITING Oxycodone/Acetaminophen (Percocet 5/325 Tab*) 1 tab PO Q4H PRN PRN Reason: PAIN Last Admin: 08/25/18 13:27 Dose: 1 tab Pantoprazole Sodium (Protonix Tab*) [facility] Last Admin: 08/25/18 09:34 Dose: 40 mg Propranolol HCl (Inderal La Cap*) 60 mg PO [facility] Last Admin: 08/25/18 09:34 Dose: 60 mg Vital Signs - 8 hr 08/25/18 08/25/18 08/25/18 09:35 09:57 10:30 Respiratory 18 18 16 Rate O2 Sat by Pulse Oximetry 08/25/18 08/25/18 13:27 15:38 Respiratory 16 Rate O2 Sat by Pulse 93 Oximetry Oxygen Devices in Use Now: None Appearance: well appearing, sitting in chair, alert and interactive Ears/Nose/Mouth/Throat: - - no stare or lid lag Neck: No Thyroid Enlargement, Masses Respiratory: Clear to Auscultation Cardiovascular: RRR Result Diagrams: 08/25/18 05:47 08/25/18 05:47 Microbiology and Other Data: Microbiology 08/23/18 13:09 Anaerobic Culture - Preliminary Wound No Growth Day 2 Gram Stain - Final Wound Culture - Preliminary No Growth Day 2 Assessment/Plan - Billing 73W with stable angina, HTN, chronic migraines, and GERD, who was admitted for elective ventral hernia repair with removal of infected mesh. After procedure, she was noted to have asymptomatic bradycardia, so Medicine was consulted for further evaluation. Found to have low TSH and elevated fT4, likely from acute infection and surgery. 1. Abnormal thyroid tests. No overt hyperthyroid symptoms. Will f/u labs as outpatient. 2. Bradycardia. On 2 rate lowering medications. Asymptomatic. No intervention needed at this time. 3. Stable angina. Cont dilt. 4. HTN. Continue amlodipine and lisinopril. 5. Migraine prophylaxis withi propranolol, although odd to be on once daily dosing, pt reports it works for her.
[2018-08-26] MEDS: D5W NS 0.9% 20Meq KCL 1000 ML* 1,000 ML IV SCH (03:58)
[2018-08-26] MEDS: Heparin VIAL(*) 5000 UNITS/ML VIAL (FIVE THOUSAND) SUBCUT SCH ×3 (06:16→21:50)
[2018-08-26] MEDS: Cephalexin CAP* 250 MG PO SCH ×4 (08:59→21:50)
[2018-08-26] MEDS: Propranolol LA CAP* 60 MG PO SCH (08:59)
[2018-08-26] MEDS: amLODIPine TAB* 5 MG PO SCH (08:59)
[2018-08-26] MEDS: Diltiazem CD CAP* 120 MG PO SCH (08:59)
[2018-08-26] MEDS: Pantoprazole TAB * 40 MG TAB PO SCH (08:59)
[2018-08-26] MEDS ORDERED: Acetaminophen TAB* 325 MG PO PRN (09:05)
--- NOTE | 2018-08-26 12:48 | PN ---
Progress Note - Progress Note Date of Service: 08/26/18 SOAP: Subjective: Pt seen and examined. Feeling a little better, pos flatus, some appetite abdo pain Objective: Temp Pulse Resp BP Pulse Ox 98.7 F 68 16 150/49 95 08/26/18 07:33 08/26/18 07:33 08/26/18 08:00 08/26/18 07:33 08/26/18 07:33 Intake & Output 08/25/18 08/26/18 08/26/18 22:59 06:59 14:59 Intake Total 240 1490 160 Output Total 300 400 300 Balance -60 1090 -140 a and o x3, nad lungs poor effort abdo: soft/ ND/ tender ` dressing removed, staple line intact with shala; no redness output: minimal in vac- serosang ext wnl labs last 2 days noted Assessment: POD 3 ex lap tripp, hernia repair- ileus Plan: OOB GI dvt prop home meds d/c ivf encourage PO possible d/c home tomorrow
[2018-08-27] MEDS: Heparin VIAL(*) 5000 UNITS/ML VIAL (FIVE THOUSAND) SUBCUT SCH (05:28)
[2018-08-27] MEDS: oxyCODONE/Acetamin 5/325 MG* TAB PO PRN (05:28)
[2018-08-27 05:30] LABS: ABS Eosinophils 0.1 10^3/ul (0-0.6); ABS Lymphocytes 1.5 10^3/ul (1.0-4.8); ABS Monocytes 0.7 10^3/ul (0-0.8); ABS Neutrophils 5.9 10^3/ul (1.5-7.7); Eosinophil % 1.3 %; Hematocrit 28 % (35-47); Lymphocyte % 18.5 %; Mean Corpuscular HGB Conc 32 g/dL (31-36); Mean Corpuscular Hemoglobin 27 pg (27-31); Mean Corpuscular Volume 85 fL (80-97); Mean Platelet Volume 7.2 fL (7.4-10.4); Platelet Count 237 10^3/uL (150-450); Red Blood Count 3.33 10^6 /uL (3.70-4.87); Red Cell Distribution Width 15 % (10.5-15); White Blood Count 8.3 10^3/uL (3.5-10.8)
[2018-08-27] MEDS ORDERED: Lisinopril TAB* 10 MG PO SCH (09:00)
[2018-08-27] MEDS ORDERED: Magnesium Oxide TAB* 400 MG PO SCH (09:00)
[2018-08-27] MEDS: Propranolol LA CAP* 60 MG PO SCH (09:36)
[2018-08-27] MEDS: amLODIPine TAB* 5 MG PO SCH (09:36)
[2018-08-27] MEDS: Pantoprazole TAB * 40 MG TAB PO SCH (09:36)
[2018-08-27] MEDS: Diltiazem CD CAP* 120 MG PO SCH (09:37)
[2018-08-27] MEDS: Cephalexin CAP* 250 MG PO SCH (09:37)
--- NOTE | 2018-08-27 10:47 | CONSULT ---
Subjective Date of Service: 08/27/18 Interval History: Pt ready for discharge per primary team. She denies symptoms from bradycardia. She denies symptoms of hyperthyroid. Review of Systems - Measurements Intake and Output: Intake and Output Last 24 Hours 08/25/18 08/26/18 08/27/18 08/28/18 06:59 06:59 06:59 06:59 Intake Total 3000 2130 1430 Output Total 1800 1200 2300 Balance 1200 930 -870 Intake: IV Fluids 1960 990 LR 1960 d5 ns 20k 990 IVPB 120 ABX - CEFAZOLIN 120 Medicated IV 110 Ancef 110 Oral 810 1140 1430 Output: Urine 1800 1200 2300 Other: # Bowel Movements 0 0 0 Objective Active Medications: Acetaminophen (Tylenol Tab*) 975 mg PO Q8H PRN PRN Reason: PAIN Last Admin: 08/26/18 22:19 Dose: 975 mg Albuterol/Ipratropium (Duoneb (Albuterol 2.5 Mg/Ipratropium 0.5 Mg)) 1 neb INH Q6H PRN PRN Reason: SOB/WHEEZING Last Admin: 08/25/18 23:51 Dose: 1 neb Amlodipine Besylate (Norvasc Tab*) 10 mg PO QAM [facility] Last Admin: 08/27/18 09:36 Dose: 10 mg Cephalexin HCl (Keflex Cap*) 250 mg PO QID [facility] Last Admin: 08/27/18 09:37 Dose: 250 mg Diltiazem HCl (Cardizem Cd Cap*) 120 mg PO QAM [facility] Last Admin: 08/27/18 09:37 Dose: 120 mg Heparin Sodium (Porcine) (Heparin Vial(*)) 5,000 units SUBCUT Q8HR [facility] Last Admin: 08/27/18 05:28 Dose: 5,000 units Lisinopril (Prinivil Tab*) 40 mg PO QAM [facility] Last Admin: 08/27/18 09:36 Dose: 40 mg Magnesium Oxide (Magox 400 Tab*) 400 mg PO QAM [facility] Last Admin: 08/27/18 09:36 Dose: 400 mg Morphine Sulfate (Morphine Inj (Syringe))*) 2 mg IV Q2H PRN PRN Reason: PAIN Last Admin: 08/25/18 09:35 Dose: 2 mg Ondansetron HCl (Zofran Inj*) 4 mg IV Q4H PRN PRN Reason: NAUSEA/VOMITING Oxycodone/Acetaminophen (Percocet 5/325 Tab*) 1 tab PO Q4H PRN PRN Reason: PAIN Last Admin: 08/27/18 05:28 Dose: 1 tab Pantoprazole Sodium (Protonix Tab*) [facility] [place] Last Admin: 08/27/18 09:36 Dose: 40 mg Propranolol HCl (Inderal La Cap*) 60 mg PO [facility] Last Admin: 08/27/18 09:36 Dose: 60 mg Vital Signs - 8 hr 08/27/18 08/27/18 08/27/18 03:47 05:28 05:30 Temperature 97.5 F Pulse Rate 82 Respiratory 18 18 Rate Blood Pressure 189/76 162/78 (mmHg) O2 Sat by Pulse 96 Oximetry 08/27/18 08/27/18 07:27 09:40 Temperature 97.6 F Pulse Rate 66 Respiratory 15 16 Rate Blood Pressure 153/60 (mmHg) O2 Sat by Pulse 93 Oximetry Oxygen Devices in Use Now: None Appearance: sitting at side of bed, appears comfortable; alert and interactive Neck: No Thyroid Enlargement, Masses Respiratory: Clear to Auscultation Cardiovascular: RRR Extremities: No Edema Skin: No Rash or Ulcers Neurological: Alert and Oriented x 3 Result Diagrams: 08/27/18 05:08 08/25/18 05:47 Microbiology and Other Data: Microbiology Assessment/Plan - Billing 73W with stable angina, HTN, chronic migraines, and GERD, who was admitted for elective ventral hernia repair with removal of infected mesh. After procedure, she was noted to have asymptomatic bradycardia, so Medicine was consulted for further evaluation. Found to have low TSH and elevated fT4, likely from acute infection and surgery. 1. Abnormal thyroid tests. No overt hyperthyroid symptoms. Will repeat labs as an outpatient in approximately 1 month. 2. Bradycardia. On 2 rate lowering medications. Asymptomatic. No intervention needed at this time. 3. Stable angina. Cont dilt. 4. HTN. Continue amlodipine and lisinopril. 5. Migraine prophylaxis withi propranolol, although odd to be on once daily dosing, pt reports it works for her. Discussed continued management with PCP.
[2018-08-27 11:59] VITALS: BP 138/71
--- NOTE | 2018-08-27 12:25 | DS ---
CC: Dr. Roxana Hernandez; [facility] * DISCHARGE SUMMARY: DATE OF ADMISSION: DATE OF DISCHARGE: 08/27/18 HOSPITAL COURSE: Ms. Gm Sy is a 73-year-old female worked up as an outpatient with acute onset of abdominal pain that had worsened over the course of 3 weeks. She was noted to have on CT scan possible recurrent hernia through a large ventral mesh. Took patient somewhat urgently to the operating room on Tuesday of this past week for exploratory laparotomy, please see operative report for details. Briefly, we entered into an abscess cavity that went down to a [place]- Jeremiah mesh. The mesh was removed in its entirety and exploratory laparotomy was performed. The was washed out and primarily closed with placement of biologic mesh followed by vacuum dressing. The patient's postoperative course has been complicated with pain. I also started her on antibiotics other than the initial preoperative antibiotics due to the cultures and elevated white blood cell count. I described the patient what we found, our findings and our anticipated expectations of possibility of recurrence or seroma or wound dehiscence. She has been maintained on vacuum dressing over closed incision. [place] drain was placed at the time of surgery. This was removed yesterday when I replaced the vacuum dressing. PHYSICAL EXAM: On day of discharge, physical exam was performed. The patient was afebrile. Vital sings were stable. Alert and oriented x3, in no apparent distress. Breath sounds are improved with no wheezing. Abdomen is soft, nondistended, tender at the midline incision. Vacuum dressing in place. No erythema, no ecchymosis. Rectal exam not performed. Extremities are within normal limits. Postoperative day #4 from exploratory laparotomy, primary repair of hernia, after removal of old mesh and placing a biologic mesh, the patient is stable for discharge home. She will go home on 4 more days of Keflex 250 mg 4 times a day. She will resume her previous meds. She is no longer requiring pain medication. I have instructed her not to lift anything heavy. 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 The patient understands, her questions were answered. She understands to contact our office tomorrow for a morning appointment with me. She will also contact our office or emergency room if there is any worsening pain, fevers or nausea. Again, discharged home in stable condition. [id number]/[facility] #: [id number] BRADY
== END 2018-08-27 13:25 | disposition home or self-care (01) | DRG 908 ==
LOC: OR 10:42 → SSU 18:34
PROVIDERS: ADMIT Surgery; ATTEND Surgery
PROC: 0W9F0ZZ Drainage of Abdominal Wall, Open Approach (ICD-10-PCS; 2018-08-23)
PROC: 0WUF0JZ Supplement Abdominal Wall with Synthetic Substitute, Open Approach (ICD-10-PCS; principal; 2018-08-23 12:30)
PROC: 0WPF0JZ Removal of Synthetic Substitute from Abdominal Wall, Open Approach (ICD-10-PCS; 2018-08-23 12:30)
DX: T85.79XA Infection and inflammatory reaction due to other internal prosthetic devices, implants and grafts, initial encounter (principal); K43.0 Incisional hernia with obstruction, without gangrene; Z68.41 Body mass index [BMI] 40.0-44.9, adult; E78.5 Hyperlipidemia, unspecified; I10 Essential (primary) hypertension; K21.9 Gastro-esophageal reflux disease without esophagitis; I45.10 Unspecified right bundle-branch block; E66.9 Obesity, unspecified; I73.9 Peripheral vascular disease, unspecified; R91.1 Solitary pulmonary nodule; I20.9 Angina pectoris, unspecified; R94.6 Abnormal results of thyroid function studies; Y73.2 Prosthetic and other implants, materials and accessory gastroenterology and urology devices associated with adverse incidents; Y81.2 Prosthetic and other implants, materials and accessory general- and plastic-surgery devices associated with adverse incidents; G43.909 Migraine, unspecified, not intractable, without status migrainosus; Z90.710 Acquired absence of both cervix and uterus; Z86.010 Personal history of colon polyps; Z90.49 Acquired absence of other specified parts of digestive tract; Z90.89 Acquired absence of other organs; Z82.49 Family history of ischemic heart disease and other diseases of the circulatory system; Z83.6 Family history of other diseases of the respiratory system; Z72.89 Other problems related to lifestyle; Z87.891 Personal history of nicotine dependence; Z98.84 Bariatric surgery status; Z91.041 Radiographic dye allergy status; Y92.9 Unspecified place or not applicable; K56.7 Ileus, unspecified; R00.1 Bradycardia, unspecified
CPT/HCPCS: 36415; 80053; 84439; 84443; 84481; 85025; 87070; 87073; 87205; 88304; 93005; A9270-GY; A9272-GY; C1781; J0690; J1100; J1170; J1644; J1885; J2250; J2270; J2405; J2704; J2710; J3010

== ENCOUNTER → 2019-04-20 06:42 | Day surgery (SDC) | payer MEDICARE ==
[~2019-04-20 06:42] MED LIST changes: -Buffered Lidocaine 1% SYRIN* 1 ML/SYRINGE INTRADERM ONE; -Famotidine IV* 10 MG/ML 2 ML (20 mg) IV ONE; +Heparin 2 UNITS/ML IVPREMIX* 1,000 ML IV ONE; +Heparin 2 UNITS/ML IVPREMIX* 2,000 ML IV ONE; +Heparin(*) 1000 UNIT/ML 10 ML VIAL CATH LAB IV ONE; +Iohexol 350 (CONTRAST) 200 ML MDV IV ONE; +LORazepam TAB(*) 1 MG ONE; -Lactated Ringers 1000 ML Bag* 1,000 ML IV SCH; +Lidocaine 1% INJ* 10 MG/ML 30 ML SDV ONE; +Midazolam* 1 MG/ML 5 ML VIAL (5 MG) ONE; +diPHENhydraMINE PO* 25 MG ONE; +fentaNYL* 50 MCG/ML 2 ML VIAL (100 MCG VIAL) ONE
--- NOTE | 2019-04-20 11:59 | PN ---
Progress Note - Progress Note Date of Service: 04/20/19 SOAP: Subjective: No pain complaints. No SOB or CP. No pain at left groin. Objective: Selected Entries 04/20/19 11:31 Heart Rate 69 Respiratory 22 Rate Blood Pressure 134/71 (mmHg) Blood Pressure 97 Mean O2 Sat by Pulse 97 Oximetry NAD, AAO x 3 Left groin is soft, nontender Dressing is CDI 1+ pulses palpable at left [employer] and pop Assessment: 74 YOF status post pelvic and BLE arteriography with intraluminal pressure transduction in the aortoiliac arteries. Left CF arteriotomy closed with Mynx closure device. Nonabsorbable suture tied over skin entry site. Plan: 1. Planned bilateral iliac artery "kissing stents" deployment. 2. Left groin suture must be removed in 5-7 days. 3. DC to home. 4. No change to medications.
[2019-04-20 12:28] VITALS: BP 151/70
== END | disposition home or self-care (01) ==
LOC: CHICATH 06:42
PROVIDERS: ATTEND Radiology Diagnostic Radiology
DX: I70.223 Atherosclerosis of native arteries of extremities with rest pain, bilateral legs (principal); E78.5 Hyperlipidemia, unspecified; I10 Essential (primary) hypertension; K21.9 Gastro-esophageal reflux disease without esophagitis; I45.10 Unspecified right bundle-branch block; Z87.442 Personal history of urinary calculi; Z87.891 Personal history of nicotine dependence
CPT/HCPCS: 75736; 76937; 85347; 99156; 99157; A9270-GY; C1760; C1769; C1887; C1894; J1644; J2250; J3010

== ENCOUNTER → 2019-06-01 07:11 | Day surgery (SDC) | payer MEDICARE ==
[~2019-06-01 07:11] MED LIST changes: +Clopidogrel TAB* 300 MG ONE; -Heparin 2 UNITS/ML IVPREMIX* 1,000 ML IV ONE; -Heparin 2 UNITS/ML IVPREMIX* 2,000 ML IV ONE; +Heparin 2 UNITS/ML IVPREMIX* 3,000 ML IV ONE; +Iodixanol 320 (CONTRAST) 100 ML SDV ONE; -LORazepam TAB(*) 1 MG ONE; +ceFAZolin 1 GM in Dextrose (*) 1 GM/50 ML BAG IVPB ONE; +diPHENhydraMINE IV* 50 MG/ML 1 ml VIAL (BENADRYL) ONE; -diPHENhydraMINE PO* 25 MG ONE
[2019-06-01 08:31] LABS: ABS Lymphocytes 0.6 10^3/ul (1.0-4.8); ABS Monocytes 0.1 10^3/ul (0-0.8); Hematocrit 33 % (35-47); Hemoglobin 10.6 g/dL (12.0-16.0); Lymphocyte % 6.4 %; Mean Corpuscular HGB Conc 32 g/dL (31-36); Mean Corpuscular Hemoglobin 24 pg (27-31); Mean Corpuscular Volume 77 fL (80-97); Mean Platelet Volume 7.1 fL (7.4-10.4); Platelet Count 230 10^3/uL (150-450); Red Blood Count 4.33 10^6 /uL (3.70-4.87); Red Cell Distribution Width 17 % (10-15); White Blood Count 9.7 10^3/uL (3.5-10.8)
[2019-06-01 08:37] LABS: INR 0.97 (0.82-1.09)
[2019-06-01 08:42] LABS: BUN/Creatinine Ratio 32.4 (8-20); Calcium 9.4 mg/dL (8.6-10.3); EGFR African American 93.1 (>60); EGFR Non-African American 76.9 (>60); Potassium 4.5 mmol/L (3.5-5.0)
[2019-06-01 14:03] VITALS: BP 139/89
== END | disposition home or self-care (01) ==
LOC: CHICATH 07:11
PROVIDERS: ATTEND Radiology Diagnostic Radiology
DX: I70.223 Atherosclerosis of native arteries of extremities with rest pain, bilateral legs (principal); I10 Essential (primary) hypertension; K21.9 Gastro-esophageal reflux disease without esophagitis; I45.10 Unspecified right bundle-branch block; Z98.84 Bariatric surgery status; R73.01 Impaired fasting glucose; M19.90 Unspecified osteoarthritis, unspecified site; Z87.442 Personal history of urinary calculi
CPT/HCPCS: 36415; 75736; 76937; 80048; 85025; 85347; 85610; 99156; 99157; A9270-GY; C1725; C1753; C1760; C1769; C1874; C1887; C1894; J0690; J1200; J1644; J2250; J3010